=== PATIENT | male | born 1950 | race Caucasian/White ===

== ENCOUNTER → 2017-05-13 | Day surgery (SDC) | payer OTHER, MEDICARE ==
[~2017-05-13] VITALS: Ht 175.3 cm; Wt 93.5 kg
[~2017-05-13] MED LIST: ACET-1256 PO; AMLH550 PO; ATROPINE SULFATE 0.1 MG/ML 5ML SYR IV PRN; BELLADONNA/OPIUM SUPP 60 MG SUPP PR ONE; CEFAZOLIN IV 2,000 MG/60 ML D5W IV ONE; CHOL1000 PO; EpHEDrine SULFATE INJ 50 MG/ML AMP IV PRN; FENTANYL CITRATE INJ 50 MCG/1 ML 2 ML VIAL IV PRN; FENTANYL CITRATE INJ 50 MCG/1 ML 2 ML VIAL ONE; GLC/500 PO; GUAI1TAB55 PO; HYDR12.55 PO; KRIL1000 PO; LACTATED RINGER'S 1000ML 1,000 ML IV SCH; LIDOCAINE HCL 2% 2 ML VIAL (20MG/ML) ONE; MIDAZOLAM HCL 1 MG/ML 2ML VIAL ONE; MULTTAB58 PO; ONDANSETRON INJ 2 MG/ML 2 ML VIAL IV PRN; OXYC-57 PO; PERCOCET HOME PACK PO ONE; PHEN-775 PO; PHENAZOPYRIDINE HOME PACK 200 MG VIAL PO ONE; PRLSR20 PO; PROPOFOL IV EMULSION 10 MG/ML 20 ML VIAL IV ONE
[2017-05-13 17:37] VITALS: BP 150/71; PULSE 77; TEMP 36.8; O2SAT 96; Ht 175.3 cm; Wt 93.5 kg
--- NOTE | 2017-05-13 19:01 | History and Physical ---
History Date of Service: May 13, 2017. Chief Complaint: left ureteral stone with obstruction Primary Care Physician: Jordon Naqvi MD Pt seen a urologist before?: No History of Present Illness Patient has large left ureteral stone with obstruction severe pain nausea and emesis. we plan stent Imaging CT Laboratory Labs were reviewed and are within normal limits unless listed below. Labs are available in the chart and at [facility] Past History Past Medical History: coronary artery disease, diabetes, heart disease, hypertension Family History no stones Social History Hx Tobacco Use In Past Year?: No Smoking: non-smoker Alcohol: never Housing status: lives with family Occupation status: retired History of MDRO No Allergies Coded Allergies: Morphine (Verified Allergy, Mild, ITCHING, 05/13/17) Medications Home Medications: Home Meds and Scripts Medications Dose Route/Sig Max Daily Dose Days Date Category Krill Oil 1 Cap Cap 1 Cap PO DAILY 05/13/17 Reported Hydrochlorothiazide 12.5 Mg Tab 1 Tab PO DAILY 90 05/13/17 Reported Glucophage (Metformin Hcl) 500 Mg Tab 500 Mg PO BID 05/13/17 Reported Prilosec (Omeprazole) 20 Mg Capcr 20 Mg PO DAILY 05/13/17 Reported Vitamin D3 (Cholecalciferol) 1,000 Unit Tab 500 Units PO DAILY 30 05/13/17 Reported Multivitamin (Multiple Vitamin) 1 Tab Tab 1 Tab PO DAILY 90 05/13/17 Reported Tylenol (Acetaminophen) 500 Mg Tab 1,000 Mg PO Q6 PRN 05/13/17 Reported Moduretic 5MG/50MG * (Amiloride/HCTZ) Tab 1 Tab PO DAILY 02/08/08 Reported Inpatient Medications: Current Inpatient Medications Medications (Trade) Dose Ordered Sig/Twin Route Start Time Stop Time Status Last Admin Dose Admin Lactated Ringer's 1,000 ml @ 15 mls/hr Q24H IV 05/13/17 07:00 05/14/17 06:59 05/13/17 17:59 15 MLS/HR Fentanyl Citrate (Fentanyl Inj) 25 mcg Q5M PRN IV 05/13/17 16:15 05/13/17 21:15 Ondansetron HCl (Zofran Inj) 4 mg ONE PRN IV 05/13/17 16:15 05/13/17 21:15 Ephedrine Sulfate (EpHEDrine SULFATE INJ) 5 mg Q5M PRN IV 05/13/17 16:15 05/13/17 21:15 Atropine Sulfate (Atropine Sulfate 0.1MG/Ml Inj) 0.5 mg Q1M PRN IV 05/13/17 16:15 05/13/17 21:15 Review of Systems Review of Systems Constitutional: No fever, No chills Endocrine: No excessive thirst, No too hot Gastrointestinal: + abdominal pain, + nausea, + vomiting, + constipation, No indigestion Cardiovascular: No chest pain, No irregular heartbeat, No palpitations Male : + frequent urination, + painful urination, + blood in urine, + kidney stones, + nocturia more than once/night Physical Exam Vital Signs: Vital Signs Past 12 Hours Date Time Temp Pulse Resp B/P (MAP) Pulse Ox O2 Delivery O2 Flow Rate FiO2 05/13/17 17:37 36.8 77 18 150/71 (97) 96 Room Air Physical Exam: General Appearance: WD/WN, no apparent distress, + obese Eyes: bilateral eyes normal inspection ENT: hearing grossly normal Neck: no adenopathy Respiratory/Chest: normal breath sounds, no respiratory distress, no accessory muscle use Cardiovascular: regular rate, rhythm Extremities: non-tender, normal inspection, no pedal edema Neurologic/Psychiatric: alert Skin: normal color, warm/dry, no rash Assessment & Plan Assessment & Plan left obstructing ureteral stone with hydro and left lower pole stone plan cysto stent then next week a ureteroscopy with laser litho
--- NOTE | 2017-05-13 19:30 | [facility] Operative Report ---
Operative Report Operative Date May 13, 2017. Pre-Operative Diagnosis obstructing left ureteral stone Post-Operative Diagnosis same Procedure(s) Performed cysto left stent placement Surgeon omaira Bail Bonding Agent Surgeon(s) none Estimated Blood Loss 0mL Findings large radio-opaque left upper ureteral stone Fluids 600mL Specimens none Drains 6 fr 24 centimeter double j stent Anesthesia iv sedation Complication(s) None Disposition Recovery Room / PACU Indications large obstructing left upper ureteral stone we plan stent to relieve pain and obstruction then plan surgery to remove it and the left renal stone next week Description of Procedure Patient was sedated and placed in lithotomy position. His genitals were prepped and draped in sterile fashion. Time out held with team. I placed a 21 fr rigid cystoscope to bladder. The urethra is unremarkable. The prostate is very large with middle lobe. The UOs are lateral. I placed a road runner wire up left ureter and there is a bit of j hooking. I had minimal resistance to passage of wire at radio-opaque stone. I placed a 24 centimeter 6 Fr double J stent easily. There is brisk bloody efflux after placement. I left bladder empty and concluded case. I placed a belladonna and opium suppository for post- op pain. He transferred to recovery under my escort, in stable condition. Plan: Home today Pyridium for dysuria x 3 days flomax daily oral pain meds as needed ASA 2 clean contaminated case 4 seconds fluoro ancef antibiotic front desk supervisor I attest to the content of the Intraoperative Record and any orders documented therein. Any exceptions are noted below.
--- NOTE | 2017-05-13 19:31 | Anesthesiology Progress Note ---
Anesthesia Post Op Note Date & Time May 13, 2017 at 19:31 Vital Signs Pain Intensity: 1 Vital Signs Past 12 Hours Date Time Temp Pulse Resp B/P (MAP) Pulse Ox O2 Delivery O2 Flow Rate FiO2 05/13/17 17:37 36.8 77 18 150/71 (97) 96 Room Air Notes Mental Status: alert / awake / arousable, participated in evaluation Pt Amnestic to Procedure: Yes Nausea / Vomiting: adequately controlled Pain: adequately controlled Airway Patency, RR, SpO2: stable & adequate BP & HR: stable & adequate Hydration State: stable & adequate Anesthetic Complications: no major complications apparent
--- NOTE | 2017-05-13 19:33 | Discharge Instructions ---
Discharge Instructions Date of Service May 13, 2017. Admission Reason for Admission: Kidney Stone Discharge Discharge Diagnosis / Problem: left ureteral stone Discharge Goals Goal(s): Decrease discomfort, Improve function, Improve disease control Activity Recommendations Activity Limitations: resume your previous activity Lifting Limitations: none Exercise/Sports Limitations: none May Resume Sexual Activity: when tolerated Shower/Bathe: no limitations Driving or Machine Use: resume 1 day after discharge . Instructions / Follow-Up Instructions / Follow-Up urine may be bloody drink extra liquids if urine is bloody you may have pain at bladder and or kidney with stent in Discharge Diet Recommended Diet: Diabetes Type 2 Diet Fluid Restriction: None Procedures Procedures Performed: cysto left ureteral stent placement Pending Studies Studies pending at discharge: no Medical Emergencies . Who to Call and When: Medical Emergencies: If at any time you feel your situation is an emergency, please call 911 immediately. . Non-Emergent Contact Non-Emergency issues call your: Urologist ([phone]) Call Non-Emergent contact if: temperature is above 100.5, your pain is not controlled . . "Provider Documentation" section prepared by Michelle Trinh. . VTE Core Measure Inpt VTE Proph given/why not?: SCD's [place] Drug Monitoring Program Search Results: patient reviewed within database, no issues identified
[2017-05-13 19:49] VITALS: BP 128/73; PULSE 69; TEMP 36.1; O2SAT 97
--- NOTE | 2017-05-13 20:17 | DIAGNOSTIC IMAGING REPORT ---
FLUOROSCOPIC IMAGES FROM LEFT RETROGRADE EXAM CLINICAL HISTORY: LEFT STENT PLACEMENT COMPARISON STUDY: CT of the abdomen and pelvis January 02, 2012. Fluoroscopy time: 4.1 seconds. FINDINGS: Single fluoroscopic image demonstrates cannulation of the left ureter with wire and stent. A possible density projects over the proximal left ureter and could reflect a calculus. This is suboptimally assessed on this exam. IMPRESSION: Single fluoroscopic image from left retrograde exam with stent insertion. Electronically signed by: Philip Levy M.D. 05/13/2017 8:16 PM Dictated Date/Time: 05/13/2017 8:15 PM
[2017-05-13 20:20] VITALS: BP 123/69; PULSE 68; TEMP 36.5; O2SAT 98
== END | disposition home or self-care (01) ==
LOC: C.ACU 17:06
PROVIDERS: ATTEND Urology
DX: N20.1 Calculus of ureter (principal); E11.9 Type 2 diabetes mellitus without complications; I25.10 Atherosclerotic heart disease of native coronary artery without angina pectoris; I10 Essential (primary) hypertension; J45.909 Unspecified asthma, uncomplicated; Z96.649 Presence of unspecified artificial hip joint; Z98.890 Other specified postprocedural states; Z88.5 Allergy status to narcotic agent; Z91.018 Allergy to other foods

== ENCOUNTER 2018-07-03 23:01 | Emergency (ER) | payer OTHER, MEDICARE ==
[~2018-07-03] VITALS: Ht 170.2 cm; Wt 92.2 kg
[~2018-07-03 23:01] MED LIST changes: -ATROPINE SULFATE 0.1 MG/ML 5ML SYR IV PRN; -BELLADONNA/OPIUM SUPP 60 MG SUPP PR ONE; -CEFAZOLIN IV 2,000 MG/60 ML D5W IV ONE; -EpHEDrine SULFATE INJ 50 MG/ML AMP IV PRN; -FENTANYL CITRATE INJ 50 MCG/1 ML 2 ML VIAL IV PRN; -FENTANYL CITRATE INJ 50 MCG/1 ML 2 ML VIAL ONE; -GUAI1TAB55 PO; -LACTATED RINGER'S 1000ML 1,000 ML IV SCH; -LIDOCAINE HCL 2% 2 ML VIAL (20MG/ML) ONE; -MIDAZOLAM HCL 1 MG/ML 2ML VIAL ONE; -ONDANSETRON INJ 2 MG/ML 2 ML VIAL IV PRN; -OXYC-57 PO; -PERCOCET HOME PACK PO ONE; -PHEN-775 PO; -PHENAZOPYRIDINE HOME PACK 200 MG VIAL PO ONE; -PROPOFOL IV EMULSION 10 MG/ML 20 ML VIAL IV ONE
[2018-07-03 23:04] VITALS: TEMP 36.4; Ht 170.2 cm; Wt 92.2 kg
[2018-07-03] MEDS ORDERED: OXYCODONE HCL IR 5 MG TAB (IMMEDIATE RELEASE) PO STA (23:29)
[2018-07-03] MEDS ORDERED: OXYMETAZOLINE HCL 0.05% NA SPR 15 ML BTL ONE (23:30)
[2018-07-03] MEDS ORDERED: AMOXICILLIN/CLAVULANATE TAB 875 MG TAB PO ONE (23:30)
--- NOTE | 2018-07-03 23:31 | EMERGENCY ROOM VISIT NOTE ---
History Report prepared by Khalif: James Garcia Under the Supervision of: Dr. Jigar Britton M.D. First contact with patient: 23:15 Chief Complaint: HEADACHE Stated Complaint: SINUS HEADACHE History of Present Illness The patient is a 68 year old male who presents to the Emergency Room with complaints of a sinus infection. He notes the pain is in the right side of his face/cheek. He states he has a history of sinus infections in the past (x20 years ago) and had corrective surgery for this. He states he has had the sinus infection the past x2 weeks. He notes nasal discharge and occasional eye discharge, but denies a fever, chills, headache, neck pain, palpitations, or any other complaints. The patient does note use of Pseudafed PE, but denies any other antibiotic use. The patient denies being exposed to anybody ill. Review of Systems See HPI for pertinent positives & negatives. A total of 10 systems reviewed and were otherwise negative. Constitutional: No fever, No chills ENT: + nasal symptoms, No sore throat Respiratory: No cough, No shortness of breath Cardiovascular: No chest pain Abdomen: + pain, No nausea, No vomiting Family History Father had melanoma Social History Smoking Status: Never Smoker Occupation Status: retired Current/Historical Medications Scheduled Amiloride Hcl (Amiloride Hcl), 5 MG PO DAILY Amoxicillin & Pot Clavulanate (Augmentin 875-125 mg), 875 MG PO BID B-Complex Vitamins (Vitamin B Complex), 1 TAB PO DAILY Cholecalciferol (Vitamin D3), 1 CAP PO DAILY Hydrochlorothiazide (Hydrochlorothiazide), 12.5 MG PO DAILY Metformin Hcl (Glucophage), 500 MG PO BID Multiple Vitamin (Multivitamin), 1 TAB PO DAILY Omeprazole (Prilosec), 20 MG PO DAILY Prednisone (Prednisone), 50 MG PO DAILY Scheduled PRN Oxycodone Immediate Rel Tab (Roxicodone Ir), 1-2 TAB PO Q4H PRN for Severe Pain Allergies Coded Allergies: Morphine (Verified Allergy, Mild, ITCHING, 07/04/18) Physical Exam Vital Signs Date Time Temp Pulse Resp B/P (MAP) Pulse Ox O2 Delivery O2 Flow Rate FiO2 07/04/18 00:50 80 20 114/72 98 07/03/18 23:04 36.4 57 18 153/73 96 Room Air Physical Exam GENERAL: Patient is well appearing and in no acute distress. GENERAL: Uncomfortable appearing, appears in mild distress EYES: No scleral icterus, unremarkable pupils. ENT: Right max and ethmoid sinus TTP. Inflammation and erythema right nasal turbinates, effusion right middle ear, Mucous membranes moist, no nasal congestion. NECK: No masses appreciated, no meningismus, trachea is midline. RESPIRATORY: No dyspnea. Clear to auscultation and equal bilaterally. No wheeze , no rhonchi. CARDIOVASCULAR: Regular rate and rhythm. No murmurs, rubs, gallops appreciated. GASTROINTESTINAL: Abdomen soft, no peritonitis. Mild tenderness with palpation LLQ. Bowel sounds positive. No masses appreciated. BACK: No midline tenderness, no CVA tenderness EXTREMITIES: Normal motion all extremities, no cyanosis, no edema. NEUROLOGIC: Alert and oriented, no acute motor or sensory deficits, no focal weakness, cranial nerves grossly intact. SKIN: Irregular dark discoloration of tip of nose. No rash, no jaundice, no diaphoresis. Medical Decision & Procedures Medications Administered Medications (Trade) Dose Ordered Sig/Twin Route Start Time Stop Time Status Last Admin Dose Admin Oxymetazoline HCl (Afrin 0.05% Nasal [employer]) 2 sprays NOW ONCE NA 07/03/18 23:30 07/03/18 23:31 DC 07/03/18 23:37 2 SPRAYS Prednisone (PredniSONE TAB) 60 mg NOW STAT PO 07/03/18 23:29 07/03/18 23:31 DC 07/03/18 23:37 60 MG Oxycodone HCl (Roxicodone Immediate Rel Tab) 10 mg NOW STAT PO 07/03/18 23:29 07/03/18 23:31 DC 07/03/18 23:37 10 MG Amoxicillin/ Clavulanate Potassium (Augmentin Tab) 875 mg ONE ONCE PO 07/03/18 23:30 07/03/18 23:31 DC 07/03/18 23:37 875 MG Oxycodone HCl (Roxicodone Immediate Rel 5MG Home Pack) 1 homepack UD ONCE PO 07/04/18 00:45 07/04/18 00:46 DC 07/04/18 00:45 1 HOMEPACK Medical Decision Mr. Nassar is a pleasant 68 year old male who reports for sinus pain/infection symptoms x2 weeks. He has a prior history of this x20 years ago, which resolved with corrective surgery. His exam notes inflammation and erythema right nasal turbinates, effusion right middle ear. Orders: 23:30: Prednisone 60mg, Oxycodone 10mg PO, Amoxicillin 875mg PO, Oxymetazoline 0.05% 2 sprays Rechecks: 1209AM: Patient is feeling much better. He would like to wait a little long before being discharged home. 12:43AM: Patient is doing well and wishes to be discharged home. He will follow up with his PCP in 2-3 days. Reviewed plan with the patient who agrees. All questions answered. Right sinus infection by history and exam. Not septic and looking well. He is much improved with above meds and comfortable. Vague LLQ pain last few days but not septic and no evidence of dissection, rupture, nor peritonitis. States not like kidney stones. May be mild diverticulitis but more likely MSK. Regardless he will need to be on abx for sinus and will go with augmentin. Reviewed risks hyperglycemia with steroids. Reviewed risks, restrictions and instructions of Oxy IR. Reviewed 48 hours afrin use. Patient stable, feeling much better and wanting to go home. Will follow with PCP. Discussed skin discoloration of tip of nose with is dark, multiple colors, irregular boarders and enlarged over last 1 year, in addition to his father having melanoma thus the importance of discussing with PCP and likely Derm evaluation. He understands and agrees. Medication Reconcilliation Current Medication List: was personally reviewed by me Blood Pressure Screening Patient's blood pressure: Elevated blood pressure Impression Primary Impression: Acute sinus infection Additional Impression: Skin lesion Scribe Attestation The scribe's documentation has been prepared under my direction and personally reviewed by me in its entirety. I confirm that the note above accurately reflects all work, treatment, procedures, and medical decision making performed by me. Departure Information Prescriptions Oxycodone Immediate Rel Tab (ROXICODONE IR) 5 Mg Tab 1-2 TAB PO Q4H Y for Severe Pain, #8 TAB Prov: Jigar Britton M.D. 07/04/18 Amoxicillin & Pot Clavulanate (Augmentin 875-125 mg) 1 Tab Tab 875 MG PO BID for 10 Days, #20 TAB Prov: Jigar Britton M.D. 07/04/18 Prednisone (PREDNISONE) 50 Mg Tab 50 MG PO DAILY for 4 Days, #44 TAB Prov: Jigar Britton M.D. 07/04/18 Referrals Jordon Naqvi MD (PCP) Patient Instructions ED Sinusitis Abx Tx, My [facility] Additional Instructions It is very important you follow up with your primary care provider for further evaluation of your sinus infection as well as the discoloration of your nose. You have received a narcotic pain medication prescription. These medications may cause drowsiness and should not be used with other sedative medications. Do not drive, drink alcohol, perform dangerous activities, nor make important decisions after taking these medications. termite technician use or inappropriate use may lead to addiction. Prednisone may make your blood sugars higher over the next week thus you must monitor them closely and avoid sugars. Problem Qualifiers
[2018-07-04] MEDS ORDERED: CHOL2000 PO (00:08)
[2018-07-04] MEDS ORDERED: B-COTAB18 PO (00:08)
[2018-07-04] MEDS ORDERED: AMIL5TAB15 PO (00:08)
[2018-07-04] MEDS ORDERED: OXYC-737 PO (00:41)
[2018-07-04] MEDS ORDERED: AMOX875T PO (00:41)
[2018-07-04] MEDS ORDERED: PRED50TA PO (00:41)
[2018-07-04] MEDS ORDERED: OXYCODONE IR HOME PACK PO ONE (00:45)
[2018-07-04 00:50] VITALS: BP 114/72; PULSE 80; O2SAT 98
== END 2018-07-04 00:52 | disposition home or self-care (01) ==
LOC: C.EDB 23:02
DX: J01.90 Acute sinusitis, unspecified (principal); L98.9 Disorder of the skin and subcutaneous tissue, unspecified; Z87.09 Personal history of other diseases of the respiratory system; Z98.890 Other specified postprocedural states; Z80.8 Family history of malignant neoplasm of other organs or systems; Z88.6 Allergy status to analgesic agent

== ENCOUNTER 2022-02-02 22:21 | Inpatient (IN) ==
[2022-02-02] MEDS ORDERED: SODIUM CHLORIDE 0.9% 500 ML IV STA (22:52)
[2022-02-02] MEDS ORDERED: fentaNYL citrate 100 MCG/2 ML VIAL IV STA (23:03)
[2022-02-02] MEDS ORDERED: KETOROLAC TROMETHAMINE 15 MG/ML VIAL IV STA (23:03)
[2022-02-02] MEDS ORDERED: ONDANSETRON INJ 2 MG/ML 2 ML VIAL IV STA (23:03)
[2022-02-02 23:06] LABS: Appearance Urine Cloudy (Clear); Bacteria Urine Automated 2+ (Negative); Bilirubin Urine Negative (Negative); Blood Urine 3+ (Negative); Color Urine Yellow; Epithelial Cell Urine Auto 0-5 /lpf (0-5); Glucose Urine UA Negative (Negative); Ketones Urine 1+ (Negative); Leukocyte Esterase Urine 3+ (Negative); Nitrite Urine Positive (Negative); Protein Urine 1+ (Negative); Specific Gravity Urine 1.017 (1.000-1.030); Urobilinogen Urine Negative (Negative); WBC Urine Automated >30 /hpf (0-5)
--- NOTE | 2022-02-02 23:19 | Emergency Department Note ---
History of Present Illness General Chief complaint: Kidney Stone Stated complaint: KIDNEY STONE, LT SIDE FLANK PAIN Time Seen by Provider: 02/02/22 22:51 History of Present Illness Maximum Pain Intensity: 10 71-year-old male presents emergency department with a 5-hour history of left flank pain that radiates to his left groin. He has a prior history of kidney stones; patient states that he felt like he passed a kidney stone last week. Patient states increased pain and vomiting today. Patient denies fever. Patient denies specific midline abdominal pain. There are no other mitigating or alleviating factors; currently rates the pain as moderate located in the left flank with radiation to left groin. There are no other mitigating or alleviating factors related to pain relief. Home Medications Medication Instructions Recorded Confirmed Type cinnamon bark 500 mg capsule 500 mg PO QAM 05/21/19 02/02/22 History (Cinnamon) metformin 1,000 mg tablet 1,000 mg PO BID 05/21/19 02/02/22 History multivitamin 1 tab PO QAM 05/21/19 02/02/22 History cyanocobalamin (vitamin B-12) 1,000 mcg PO Q OTHER DAY 02/02/22 02/02/22 History 1,000 mcg tablet (Vitamin B-12) elderberry fruit 200 mg capsule 200 mg PO UD 02/02/22 02/02/22 History losartan 25 mg tablet 25 mg PO DAILY 02/02/22 02/02/22 History omeprazole 20 mg tablet,delayed 20 mg PO BID 02/02/22 02/02/22 History release rosuvastatin 20 mg tablet 20 mg PO DAILY 02/02/22 02/02/22 History Allergies Allergy/AdvReac Type Severity Reaction Status Date / Time morphine Allergy Mild ITCHING Verified 02/02/22 22:47 banana Allergy Unknown Unverified 02/02/22 22:47 cabbage Allergy Unknown Unverified 02/02/22 22:47 cucumber Allergy Unknown Unverified 02/02/22 22:47 walnut Allergy Unknown Unverified 02/02/22 22:47 Past Med/Surg History Medical History (Updated 02/03/22 @ 00:53 by Sin Delgado DO) Asthma Diabetes Family History Other Family history non-contributory Social History Smoking Status: Never smoker Preferred Language: Croatian marital status: Current Living Situation: Spouse current occupational status: retired Feels Safe at Home: Yes Immunizations: Patient's had a prior history of kidney stones, patient's had stents in the past. Patient's not on any blood thinners. Review of Systems A total of 10 systems reviewed and were otherwise negative Gastrointestinal: + abdominal pain Genitourinary (Male): + flank pain Physical Exam Vital Signs Vital Signs - 24 hr 02/02/22 22:22 02/03/22 00:05 Temperature 36.4 C L Temperature Source Temporal Artery Scan Pulse Rate 73 67 Respiratory Rate 18 Respiratory Depth Normal Blood Pressure 180/124 H Blood Pressure Mean 142 Blood Pressure Position Sitting Pulse Oximetry 95 98 Oxygen Delivery Method Room Air Room Air Sepsis Recent Fever Within 48 Hours No Sepsis New/Unexplained Change in Mental Status No Sepsis Action Taken by Nursing No Action Required VITAL SIGNS - Vital signs and nursing notes were reviewed. GENERAL -71-year-old male appearing his stated age who is in no acute distress. Communicates well with provider and answers questions appropriately. SKIN - Without rashes. HEAD - NC/AT. EYES - PERRL with EOMI bilaterally. Sclera anicteric. Palpebral conjunctiva pink and moist with no injection noted. EARS - No deformities of external structures noted on gross examination bilaterally. NOSE - Midline and without cyanosis. No epistaxis or purulent drainage noted. Septum midline without deviation or septal hematoma noted. MOUTH/OROPHARYNX - Without perioral cyanosis. NECK - Neck with FROM. Supple to palpation. LUNGS - Chest wall symmetric without accessory muscle use, intercostals retractions, or central cyanosis. Normal vesicular breath sounds CTA B/L. No wheezes, rales, or rhonchi appreciated. CARDIAC - RRR with S1/S2. No murmur, rubs, or gallops appreciated. ABDOMEN - Abdominal contour soft without pulsations or visible masses. BS normoactive all four quadrants. No tenderness, palpable masses, hepatosplen omegaly, or ascites noted. Positive for left costovertebral angle tenderness EXTREMITIES - No clubbing or peripheral cyanosis. +5/5 strength noted in UE/LE bilaterally. NEUROLOGIC - Cranial nerves II through XII grossly intact. Sensory intact to light touch throughout. Patellar reflexes +2/4. PSYCH - A&Ox3 and cooperates fully with examiner. Pt is very pleasant and interacts well with examiner. Course Reevaluation(s) Reevaluation #1: Patient was started on IV fluids IV Zofran IV Toradol IV fentanyl, IV Rocephin. Patient has a 9.3 mm ureterolithiasis its proximal on the left side with a urin luis tract infection. Consultations Consultation #1: Dr Ross urology; keep NPO for am eval; spoke with at 1245am Consultation #2: Spoke with Dr Teresa for admit at 1252am Administered Medications Ceftriaxone Sodium (Rocephin) 1,000 mg in 50 mls @ 100 mls/hr IV NOW STA Stop: 02/03/22 01:05 Last Admin: 02/03/22 00:41 Dose: 100 mls/hr Documented by: [id number] Discontinued Medications Fentanyl Citrate (Fentanyl Citrate 100 Mcg/2 Ml Vial) 50 mcg IV NOW STA Stop: 02/02/22 23:04 Last Admin: 02/02/22 23:38 Dose: 50 mcg Documented by: [id number] Sodium Chloride (Nss) 500 mls @ 999 mls/hr IV .Q31M STA Stop: 02/02/22 23:22 Last Infusion: 02/03/22 00:11 Dose: 0 mls/hr Documented by: [id number] Admin: 02/02/22 23:37 Dose: 999 mls/hr Documented by: [id number] Ketorolac Tromethamine (Ketorolac Tromethamine 15 Mg/Ml Vial) 15 mg IV NOW STA Stop: 02/02/22 23:04 Last Admin: 02/02/22 23:37 Dose: 15 mg Documented by: [id number] Ondansetron HCl (Ondansetron Inj 2 Mg/Ml 2 Ml Vial) 4 mg IV NOW STA Stop: 02/02/22 23:04 Last Admin: 02/02/22 23:37 Dose: 4 mg Documented by: [id number] Tamsulosin HCl (Tamsulosin Hcl 0.4 Mg Cap) 0.4 mg PO NOW ONE Stop: 02/03/22 00:38 Last Admin: 02/03/22 00:44 Dose: 0.4 mg Documented by: [id number] Medical Decision Making Medical Records Attestation: I reviewed the patient's medical records. Laboratory Data Attestation: I reviewed the patient's lab results. Result diagrams: 02/02/22 23:23 02/02/22 23:23 Lab Results 02/02/22 02/02/22 02/02/22 Range/Units 22:52 23:23 23:23 WBC 8.33 (4.8-10.8) K/uL RBC 4.71 (4.7-6.1) M/uL Hgb 14.0 (14.0-18.0) g/dL Hct 40.9 L (42-52) % MCV 86.8 (80-100) fL MCH 29.7 (25-34) pg MCHC 34.2 (32-36) g/dL RDW Std Deviation 47.2 H (36.4-46.3) fL RDW Coeff of Surinder 14.7 H (11.5-14.5) % Plt Count 171 (130-400) K/uL MPV 10.4 (7.4-10.4) fL Immature Gran % (Auto) 0.2 % Neut % (Auto) 79.5 % Lymph % (Auto) 11.8 % [place] % (Auto) 8.3 % Eos % (Auto) 0.0 % Baso % (Auto) 0.2 % Neut # (Auto) 6.62 H (1.4-6.5) K/uL Lymph # (Auto) 0.98 L (1.2-3.4) K/uL [place] # (Auto) 0.69 H (0.11-0.59) K/uL Eos # (Auto) 0.00 (0-0.5) K/uL Baso # (Auto) 0.02 (0-0.2) K/uL Immature Gran # (Auto) 0.02 (0.00-0.02) K/uL Sodium 135 L (136-145) mmol/L Potassium 4.1 (3.5-5.1) mmol/L Chloride 100 (98-107) mmol/L Carbon Dioxide 26 (21-32) mmol/L Anion Gap 9 (3-11) BUN 22 (6-23) mg/dl Creatinine 0.86 (0.6-1.4) mg/dl Est Cr Clr Drug Dosing 86.9 ml/min Est GFR ( Amer) 100.4 ml/min Est GFR (Non-Af Amer) 86.6 ml/min BUN/Creatinine Ratio 25.6 H (10-20) Glucose 184 H (70-99(Fasting)) mg/dl Calcium 9.7 (8.5-10.1) mg/dl Total Bilirubin 0.9 (0.2-1.0) mg/dl AST 25 (13-39) U/L ALT 20 (7-52) U/L Alkaline Phosphatase 66 (34-104) U/L Total Protein 7.5 (6.0-8.3) gm/dl Albumin 4.4 (3.4-5.0) gm/dl Globulin 3.1 (2.5-4.0) gm/dl Albumin/Globulin Ratio 1.4 (0.9-2) Urine Color Yellow Urine Appearance Cloudy A (Clear) Urine pH 5.0 (4.5-7.5) Ur Specific [place] 1.017 (1.000-1.030) Urine Protein 1+ H (Negative) Urine Glucose (UA) Negative (Negative) Urine Ketones 1+ H (Negative) Urine Blood 3+ H (Negative) Urine Nitrite Positive A (Negative) Urine Bilirubin Negative (Negative) Urine Urobilinogen Negative (Negative) Ur Leukocyte Esterase 3+ H (Negative) Urine WBC (Auto) >30 H (0-5) /hpf Urine RBC (Auto) 10-30 H (0-4) /hpf U Hyaline Cast (Auto) 1-5 (0-5) /lpf U Epithel Cells (Auto) 0-5 (0-5) /lpf Urine Bacteria (Auto) 2+ H (Negative) Imaging Data Radiologist's Impression: * Preliminary Findings Only See Final Report For Complete Findings CT ABDOMEN & PELVIS Without Contrast: Comparison: CT abdomen and pelvis 01/02/12. Obstructing 9.3 mm proximal left ureter stone located at the L2-L3 level causing mild upstream hydroureteronephrosis. Additional punctate nonobstructing left kidney stones. Multiple nonobstructing right kidney stones. No right-sided hydroureteronephrosis. Slight liver surface nodularity could reflect cirrhosis. Gallbladder, spleen, pancreas, adrenal glands are unremarkable. Appendix not identified. No bowel obstruction. Diverticulosis without diverticulitis. Urinary bladder is unremarkable. Prostate is enlarged. Fat-containing inguinal hernias. Fixation hardware along the posterior column of the left acetabulum. No acute osseous findings. Radiologist: Dominique Gunter M.D.12:31 AM10 days left MDM Narrative Medical decision making differential diagnosis includes ureterolithiasis, renal colic, musculoskeletal back pain, I do not suspect AAA. Plan is to check labs, CT, IV pain control Impression & Plan Ureterolithiasis, Acute UTI (urinary tract infection) Discharge Plan Visit Data Chief Complaint: Kidney Stone Stated Complaint: KIDNEY STONE, LT SIDE FLANK PAIN ED Provider: Sin Delgado Discharge Problem: Ureterolithiasis, Acute UTI (urinary tract infection) Patient Disposition: Being Evaluated by Hospitalist Forms Stand Alone Forms: [facility] Prescriptions Prescriptions: No Action multivitamin Tablet 1 tab PO QAM RF: 0 metformin 1,000 mg tablet 1,000 mg PO BID RF: 0 cinnamon bark [Cinnamon] 500 mg Capsule 500 mg PO QAM RF: 0 losartan 25 mg tablet 25 mg PO DAILY RF: 0 omeprazole 20 mg Tablet,Delayed Release (Dr/Ec) 20 mg PO BID RF: 0 cyanocobalamin (vitamin B-12) [Vitamin B-12] 1,000 mcg Tablet 1,000 mcg PO Q OTHER DAY RF: 0 Elderberry 200 mg Capsule 200 mg PO UD RF: 0 rosuvastatin 20 mg Tablet 20 mg PO DAILY RF: 0 Referrals Referrals: Jordon Naqvi MD [Primary Care Provider] -
[2022-02-02 23:42] LABS: Basophils # (auto) 0.02 K/uL (0-0.2); Basophils % (auto) 0.2 %; Hematocrit (blood only) 40.9 % (42-52); Immature Granulocytes # (auto) 0.02 K/uL (0.00-0.02); Immature Granulocytes % (auto) 0.2 %; Lymphocytes # (auto) 0.98 K/uL (1.2-3.4); Lymphocytes % (auto) 11.8 %; Mean Corpuscular Hemoglobin 29.7 pg (25-34); Mean Corpuscular Hgb Conc 34.2 g/dL (32-36); Mean Corpuscular Volume 86.8 fL (80-100); Mean Platelet Volume 10.4 fL (7.4-10.4); Monocytes # (auto) 0.69 K/uL (0.11-0.59); Monocytes % (auto) 8.3 %; Neutrophils # (auto) 6.62 K/uL (1.4-6.5); Neutrophils % (auto) 79.5 %; Platelet Count 171 K/uL (130-400); RDW Coefficient of Variation 14.7 % (11.5-14.5); RDW Standard Deviation 47.2 fL (36.4-46.3); Red Blood Count 4.71 M/uL (4.7-6.1); White Blood Count 8.33 K/uL (4.8-10.8)
[2022-02-03 00:02] LABS: Albumin Globulin Ratio 1.4 (0.9-2); Albumin Level 4.4 gm/dl (3.4-5.0); BUN Creatinine Ratio 25.6 (10-20); Bilirubin,Total 0.9 mg/dl (0.2-1.0); Calcium 9.7 mg/dl (8.5-10.1); Creatinine Clr Calc Pharmacy 86.9 ml/min; Est GFR (African American) 100.4 ml/min; Est GFR (Non-African American) 86.6 ml/min; Globulin 3.1 gm/dl (2.5-4.0); Potassium 4.1 mmol/L (3.5-5.1); Total Protein 7.5 gm/dl (6.0-8.3)
[2022-02-03] MEDS ORDERED: cefTRIAXone SODIUM 1,000 MG/50 ML BAG IV STA (00:36)
[2022-02-03] MEDS ORDERED: TAMSULOSIN HCL 0.4 MG CAP PO ONE (00:37)
--- NOTE | 2022-02-03 02:22 | History and Physical Report ---
DATE OF ADMISSION: 02/03/2022. CHIEF COMPLAINT: Left flank pain. HISTORY OF PRESENT ILLNESS: A 71-year-old male with past medical history significant for type 2 diabetes, primary hyperparathyroidism, diabetic neuropathy, hyperlipidemia, asthma, in remission, portal hypertension, TERAN, GERD without esophagitis, history of gastric ulcer, history of kidney stones, history of melanoma of skin, who presents with left flank pain. The patient says he had history of kidney stones in the past. At one time, he had stent that was placed about 4 years ago. Yesterday in the evening around 6:00 p.m., he started having severe pain in the left flank region. Associated with pain, he had several episodes of dry heaves and 1 episode of vomiting in the ER. He is also having likely increased frequency of urination for the last 2 days. Denies any burning micturition, no blood in the urine. No fever, no chills, no diarrhea. He has been slightly constipated that got resolved. Denies any chest pain, no shortness of breath. Appetite is okay. No difficulty swallowing. He had some headache during the episode, that resolved now. Some runny nose today. No blurred visions, no earache, no sore throat. No cough. Currently resting comfortably and hemodynamically stable. ALLERGIES: MORPHINE, BANANA, CABBAGE, CUCUMBER, WALNUT. PAST MEDICAL HISTORY: As mentioned above. PAST SURGICAL HISTORY: Colonoscopies, cystourethroscopy with lithotripsy, EGD with endoscopic ultrasound, parathyroidectomy, hardware in left hip, right lower leg hardware, right tibia fracture repair, revision of ulnar nerve at right elbow, umbilical hernia repair. MEDICATIONS: The patient is on vitamin B12 1000 mcg p.o. every other day, losartan 25 mg p.o. daily, metformin 1000 mg p.o. b.i.d., multivitamin 1 tablet p.o. daily, omeprazole 20 mg p.o. b.i.d., lovastatin 20 mg p.o. daily. FAMILY HISTORY: Significant for brother has diabetes. Father has diabetes, sister has diabetes, son has ulcer disease, father has CHF and CABG and melanoma. SOCIAL HISTORY: . No smoking, no alcohol, no drug use. REVIEW OF SYSTEMS: As per HPI. Rest of review of systems is negative. PHYSICAL EXAMINATION: GENERAL: The patient is of moderate build, not in acute distress. VITAL SIGNS: Temperature 36.4, pulse 67, respiratory rate 18, blood pressure 125/73, oxygen 95% on room air. HEENT: Pupils equal, round and reactive to light. Oral mucosa moist. NECK: No JVD, no neck masses. CARDIOVASCULAR: S1 and S2 heard. Regular rate and rhythm. No murmur, no gallop. RESPIRATORY SYSTEM: Normal AP diameter. No accessory muscle use. No wheezing, no crackles. ABDOMEN: Soft, bowel sounds present. Mild left lower quadrant tenderness. No CVA tenderness. No guarding. No rigidity, no distention. CENTRAL NERVOUS SYSTEM: Cranial nerves II-XII grossly intact, nonfocal. EXTREMITIES: Bilateral mild edema present, no erythema seen. LABORATORY DATA: WBC 8.3, hemoglobin 14, hematocrit 40.9, platelets 171. Sodium 135, potassium 4.1, chloride 100, bicarbonate 26, BUN 22, creatinine 0.8, serum glucose 184, calcium 9.7, total bilirubin 0.9, AST 25, ALT 20, alkaline phosphatase 66. Urinalysis cloudy, +3 blood, nitrite positive, leukocyte esterase positive, +2 bacteria. Rapid COVID test negative. IMAGING DATA: CT of abdomen and pelvis preliminary report showing an obstructing 9.3 mm proximal left ureteral stone located at the L2-L3 level, causing mild upstream hydroureteronephrosis. Additional finding showed nonobstructing left kidney stones, multiple nonobstructing right kidney stones. No right sided hydronephrosis, possible liver cirrhosis. ASSESSMENT AND PLAN: This is a 71-year-old male presents with left renal colic. 1. Left renal colic and urinary tract infection: Received Rocephin in the ER and pain medication in the ER. Currently, asymptomatic. We will continue with n.p.o., IV fluids, normal saline 100 mL per hour, IV Dilaudid p.r.n., IV antiemetics. Continue IV Rocephin. Follow the cultures. ER physician talked to urology. Consult urology in the a.m. for further recommendations. Keep n.p.o. until seen by urology. 2. History of diabetes: We will hold his metformin. Place on insulin sliding scale. Follow blood sugars. 3. History of hypertension: Holding losartan.On HCTZ. Place on IV hydralazine p.r.n. We will monitor the blood pressure. 4. Hyperlipidemia: Continue statin. 5. Gastroesophageal reflux disease: Continue omeprazole. 6. History of non-alcoholic steatohepatitis, possible cirrhosis. Follow the final report of the CAT scan. Needs follow up with gastroenterology. 7. History of primary hyperparathyroidism: Status post parathyroidectomy. 8. Deep venous thrombosis prophylaxis: Sequential compression devices for now. DISPOSITION: Closely monitor in the medical floor. PT/OT prior to discharge. Social service to help with discharge planning. Job ID: [id number] [facility]ENTER[facility]loria
[2022-02-03] MEDS ORDERED: HYDROmorphone INJ 0.5 MG/0.5 ML SYR IV PRN (02:41)
[2022-02-03] MEDS ORDERED: POLYETHYLENE (MIRALAX) 17 GM PACK PO PRN (02:41)
[2022-02-03] MEDS ORDERED: ONDANSETRON INJ 2 MG/ML 2 ML VIAL IV PRN ×2 (02:41→16:14)
[2022-02-03] MEDS: SODIUM CHLORIDE 0.9% 1000ML 1,000 ML IV SCH ×2 (02:41→11:22)
[2022-02-03] MEDS ORDERED: ACETAMINOPHEN 325 MG TAB PO PRN (02:41)
[2022-02-03] MEDS ORDERED: hydrALAZINE HCL 20 MG/ML VIAL IV PRN (02:41)
[2022-02-03] MEDS ORDERED: GLUCOSE 10 TABS/TUBE PO PRN (03:00)
[2022-02-03] MEDS ORDERED: GLUCOSE 40% GEL 15 GM TUBE PO PRN (03:00)
[2022-02-03] MEDS ORDERED: CARBOHYDRATES FOR HYPOGLYCEMIA PO PRN (03:00)
[2022-02-03] MEDS ORDERED: DEXTROSE 50% 50 ML SYRINGE IV PRN (03:00)
[2022-02-03] MEDS ORDERED: GLUCAGON FOR INJ 1 MG VIAL IM PRN (03:00)
[2022-02-03] MEDS: INSULIN ASPART PER UNIT SC SCH ×4 (06:19→21:36)
[2022-02-03 07:21] LABS: Basophils # (auto) 0.01 K/uL (0-0.2); Basophils % (auto) 0.1 %; Hematocrit (blood only) 37.7 % (42-52); Hemoglobin 12.9 g/dL (14.0-18.0); Lymphocytes % (auto) 6.6 %; Mean Corpuscular Hemoglobin 29.5 pg (25-34); Mean Corpuscular Hgb Conc 34.2 g/dL (32-36); Mean Corpuscular Volume 86.3 fL (80-100); Mean Platelet Volume 10.1 fL (7.4-10.4); Monocytes # (auto) 0.73 K/uL (0.11-0.59); Monocytes % (auto) 9.6 %; Neutrophils # (auto) 6.36 K/uL (1.4-6.5); Neutrophils % (auto) 83.7 %; Platelet Count 138 K/uL (130-400); RDW Coefficient of Variation 14.6 % (11.5-14.5); RDW Standard Deviation 46.1 fL (36.4-46.3); Red Blood Count 4.37 M/uL (4.7-6.1)
[2022-02-03 07:43] LABS: Calcium 8.1 mg/dl (8.5-10.1); Creatinine Clr Calc Pharmacy 73.6 ml/min; Est GFR (African American) 86.8 ml/min; Est GFR (Non-African American) 74.9 ml/min; Magnesium 1.5 mg/dl (1.7-2.4)
[2022-02-03] MEDS: ROSUVASTATIN CALCIUM 20 MG TAB PO SCH (07:58)
[2022-02-03] MEDS: MULTIVITAMIN TAB PO SCH (07:58)
[2022-02-03] MEDS: PANTOprazole 40 MG TAB PO SCH ×2 (07:58→20:35)
[2022-02-03 08:11] LABS: Estimated Average Glucose 160 mg/dl; Hemoglobin A1C 7.2 % (4.5-5.6)
--- NOTE | 2022-02-03 08:27 | Urology Consultation ---
Date of Consultation February 03, 2022 Assessment & Plan (1) Calculus of proximal left ureter: (2) Acute UTI (urinary tract infection): 71 yo M with past medical history of hypertension, hyperlipidemia, hx of hyperparathyroidism, s/p parathyroidectomy, diabetes, asthma, and nephrolithiasis admitted for left renal colic secondary to an obstructing left proximal ureteral stone and suspected UTI. - Patient currently afebrile, VSS, nontoxic. - Lab work reviewed - creatinine and WBC are within normal limits. - UA on admission was suspicious for infection. - Urine and blood cultures pending - currently on IV Ceftriaxone, follow cultures. - CTAP notable for an obstructing 9 mm left proximal ureteral calculus with mild hydro; nonobstructing bilateral renal calculi. - Continues to have intermittent pain, currently well managed with prn analgesia. - Discussed options for stone management including left ureteral stent placement later today. - Ureteral stents were discussed as well as post operative course. - Discussed need for stone treatment at a later date after suspected infection has been treated appropriately. - Findings reviewed with Dr. Ross. Given his suspected urinary tract infection and renal colic in the context of an obstructing 9mm left proximal ureteral stone, will proceed with OR for cystoscopy and Left stent placement. - Risks and benefits to be reviewed with patient by Dr. Ross. OR notified. Covid negative. Preoperative CXR and EKG ordered. - Patient agreeable with the plan, all questions answered. - Will cover with scheduled IV Ceftriaxone preoperatively. - Keep NPO for procedure. - Continue supportive care, antibiotics, and management per primary service. - Please consult our service urgently if patient develops fever >101F, intractable pain or nausea, as this will necessitate urgent surgical intervention. Thank you for the consultation and we will continue to monitor closely with primary service. Supervising Physician Co-Signing Physician Notes Discussed patient with YVONNE. Agree with plan. Recommend cystoscopy with left ureteral stent placement due to obstructing stone and urine concerning for infection. Patient is fortunately been stable. Risks and benefits discussed and consent obtained. Patient marked. History of Present Illness Reason for Consultation: Left ureteral stone Requesting Physician: Dr. Mcclure Attending Physician: Ángel Mcclure MD History of Present Illness 71 yo M with past medical history of hypertension, hyperlipidemia, hx of hyperparathyroidism, s/p parathyroidectomy, diabetes, asthma, and nephrolithias is admitted for left renal colic secondary to an obstructing left proximal ureteral stone and suspected UTI. Patient presented to [facility] ED on 02/02/22 with left flank pain, nausea and vomiting. Afebrile on arrival. Lab work and imaging independently reviewed - Creatinine 0.86, WBC 8.33, Hgb 14.0. Urinalysis was notable for positive nitrates, 2+ bacteria, 3+ leukocytes, >30 WBCs, 10-30 RBCs. Urine culture and blood cultures are pending. COVID testing negative. CTAP without contrast reviewed and showed an obstructing left proximal ureteral stone measuring approximately 9 mm with resulting mild left hydronephrosis. Additional nonobstructing renal calculi are noted bilaterally. ED course included IV fluids, IV Ceftriaxone, Tamsulosin, Ondansetron, Fentanyl, and Ketorolac. Patient was admitted to the hospital medicine service. Urology consulted for left ureteral stone. Chart review: Afebrile Creatinine 1.00 WBC 7.60 Hgb 12.9 Urine culture pending Blood cultures pending On IV Ceftriaxone Patient seen and examined at bedside this AM. He is awake, alert and resting in bed. Reports he is currently feeling comfortable. Reports episode of left flank pain at 0400, relieved with IV Dilaudid. No nausea or vomiting at present. He is voiding spontaneously. Notes some urinary frequency and small voids. He feels he is emptying his bladder +/-. No dysuria or hematuria at present. No fever or chi lls. No chest pain or shortness of breath. He is NPO. Reports hx of kidney stones. History of surgical intervention with ureteroscopy, laser lithotripsy, and stent placement with Dr. Trinh about 4-5 years ago. Also reports hx of spontaneous stone passage. He suspects that he passed a small stone a few weeks ago. Also notes he was treated for a UTI with Bactrim around this time. He notes that he had a follow-up with his PCP on 01/30 due to ongoing urinary symptoms. He reports that urine studies were done but he did not hear back about results. Also of note, he reports history of hyperparathyroidism and had parathyroid removed about 2-3 years ago. Reports family history of kidney stones - father, son. Denies family hx of malignancy. Offers no additional concerns at this time. Allergies Allergy/AdvReac Type Severity Reaction Status Date / Time morphine Allergy Mild ITCHING Verified 02/02/22 22:47 banana Allergy Unknown Unverified 02/02/22 22:47 cabbage Allergy Unknown Unverified 02/02/22 22:47 cucumber Allergy Unknown Unverified 02/02/22 22:47 walnut Allergy Unknown Unverified 02/02/22 22:47 Home Medications Medication Instructions Recorded Confirmed Type cinnamon bark 500 mg capsule 500 mg PO QAM 05/21/19 02/02/22 History (Cinnamon) metformin 1,000 mg tablet 1,000 mg PO BID 05/21/19 02/02/22 History multivitamin 1 tab PO QAM 05/21/19 02/02/22 History cyanocobalamin (vitamin B-12) 1,000 mcg PO Q OTHER DAY 02/02/22 02/02/22 History 1,000 mcg tablet (Vitamin B-12) elderberry fruit 200 mg capsule 200 mg PO UD 02/02/22 02/02/22 History losartan 25 mg tablet 25 mg PO DAILY 02/02/22 02/02/22 History omeprazole 20 mg tablet,delayed 20 mg PO BID 02/02/22 02/02/22 History release rosuvastatin 20 mg tablet 20 mg PO DAILY 02/02/22 02/02/22 History hydrochlorothiazide 12.5 mg PO DAILY 02/03/22 02/03/22 History Patient History Medical History Asthma Diabetes Hyperparathyroidism Surgical History H/O lithotripsy H/O parathyroidectomy Family History Father Bilateral kidney stones Son Bilateral kidney stones Other Family history non-contributory Social History Smoking Status: Never smoker Second Hand Exposure: No; Do You Dip or Chew Tobacco: No; Tobacco Cessation Education Requested by Patient: No Hx Alcohol Use: No Hx Substance Use: No Preferred Language: Monegasque Communication Ability: Effective Medical Appointment Clerk Required: No Beliefs That Will Affect Care: None marital status: Current Living Situation: Spouse current occupational status: retired Other Information That Helps Us Care for You: No Feels Safe at Home: Yes Safety Concerns: Feels Safe At This Time Assistive Devices: Contacts and Glasses Review of Systems Constitutional: as per Subjective / HPI Eyes: + corrective lenses Ear, Nose, Mouth, Throat: no problem reported Respiratory: no dyspnea Cardiovascular: no chest pain Gastrointestinal: as per Subjective / HPI Genitourinary: + as per Subjective / HPI Musculoskeletal: no problem reported Integumentary: no problem reported Neurologic: no problem reported Psychiatric: no problem reported Endocrine: no problem reported Physical Exam Constitutional: well developed and well nourished; no acute distress and not ill appearing Eyes: no scleral abnormality Neck: normal visual inspection Respiratory: normal respiratory effort and able to speak in complete sentences; no respiratory distress and no labored breathing Cardiovascular: Extremities: no pedal edema Gastrointestinal (Abdomen): Inspection/Auscultation: abdomen normal to inspection; abdomen not distended Percussion/Palpation: abdomen soft; abdomen nontender and no guarding Musculoskeletal: Head/Neck/Chest: normocephalic and head atraumatic Extremities: extremities normal to inspection Skin: no visible rashes to exposed skin Neurologic: moves all extremities and awake Psychiatric: Orientation: alert and oriented x 3 Eye Contact: good eye contact Genitourinary: no CVA tenderness Results & Data ([facility]) Vital Signs (Past 12 Hours) Vital Signs Temp Pulse Pulse Pulse Resp BP BP 02/03/22 08:03 36.9 C 68 16 114/65 02/03/22 02:49 37.1 C 83 17 156/76 H 02/03/22 02:30 37.1 C 83 17 156/76 H 02/03/22 01:15 67 18 125/73 02/03/22 00:05 67 02/02/22 22:22 36.4 C L 73 18 180/124 H Pulse Ox 02/03/22 08:03 95 02/03/22 02:49 96 02/03/22 02:30 96 02/03/22 01:15 95 02/03/22 00:05 98 02/02/22 22:22 95 Diagnostic Findings ABDOMEN AND PELVIS CT WITHOUT CONTRAST CT DOSE: 1275.05 mGy.cm HISTORY: Left flank pain TECHNIQUE: Multiaxial CT images of the abdomen and pelvis were performed without contrast. A dose lowering technique was utilized adhering to the principles of ALARA. COMPARISON STUDY: Abdomen and pelvis CT 01/02/2012. FINDINGS: A few bibasilar linear densities consistent with subsegmental atelectasis. No pneumoperitoneum. No pneumatosis. Cortical plate and screws seen within the left posterior acetabulum. Bilateral L5 spondylolysis with associated grade 1 anterolisthesis. Healing left anterior sixth rib fractures. The duodenum extends to the midline but does not completely cross the midline. This remains unchanged. Small fat-containing bilateral inguinal hernias. The prostate gland is mildly enlarged. Mild bladder wall thickening may be due to underdistention or chronic outlet obstruction. Multiple colonic diverticula. No evidence for acute diverticulitis. Suboptimal evaluation for bowel pathology due to the lack of intravenous and oral contrast. However, there is no definite bowel wall thickening or obstruction. There is a 2.3 cm fat-containing nodule within the left side the abdomen anterior to the descending colon image 240. This demonstrates a thickened rind and favors a chronic epiploic appendage. No acute inflammatory change to suggest acute process. Subtle nodular contour to the liver consistent with mild cirrhosis. No hepatic or splenic masses identified. The adrenal glands, pancreas, and gallbladder are unremarkable. Multiple bilateral renal calculi. There is an obstructing 8 mm stone within the left ureteropelvic junction resulting in mild left hydronephrosis. Left perinephric edema is likely due to the structure and. Normal caliber abdominal aorta. IMPRESSION: 1. An 8 mm obstructing stone within the left ureteropelvic junction resulting in mild left hydronephrosis. 2. Bilateral nephrolithiasis. 3. Cirrhotic liver. 4. Colonic diverticulosis. No evidence for acute diverticulitis. 5. Additional findings as described above. PG Care Time/CCT Total # of Minutes Spent Total Time Spent with Patient: Total time spent is greater than 50% in coordination of care (as documented) at patient's floor/unit and/or counseling patient: Coding Level of Care Code 86061 Initial Inpt Care Lvl 3 Diagnoses Calculus of proximal left ureter N20.1 Acute UTI (urinary tract infection) N39.0
--- NOTE | 2022-02-03 09:10 | CT Scan Report ---
ABDOMEN AND PELVIS CT WITHOUT CONTRAST CT DOSE: 1275.05 mGy.cm HISTORY: Left flank pain TECHNIQUE: Multiaxial CT images of the abdomen and pelvis were performed without contrast. A dose lo wering technique was utilized adhering to the principles of ALARA. COMPARISON STUDY: Abdomen and pelvis CT 01/02/2012. FINDINGS: A few bibasilar linear densities consistent with subsegmental atelectasis. No pneumoperiton eum. No pneumatosis. Cortical plate and screws seen within the left posterior acetabulum. Bilateral L 5 spondylolysis with associated grade 1 anterolisthesis. Healing left anterior sixth rib fractures. T he duodenum extends to the midline but does not completely cross the midline. This remains unchanged. Small fat-containing bilateral inguinal hernias. The prostate gland is mildly enlarged. Mild bladder wall thickening may be due to underdistention or chronic outlet obstruction. Multiple colonic divert icula. No evidence for acute diverticulitis. Suboptimal evaluation for bowel pathology due to the lac k of intravenous and oral contrast. However, there is no definite bowel wall thickening or obstructio n. There is a 2.3 cm fat-containing nodule within the left side the abdomen anterior to the descendin g colon image 240. This demonstrates a thickened rind and favors a chronic epiploic appendage. No acu te inflammatory change to suggest acute process. Subtle nodular contour to the liver consistent with mild cirrhosis. No hepatic or splenic masses identified. The adrenal glands, pancreas, and gallbladde r are unremarkable. Multiple bilateral renal calculi. There is an obstructing 8 mm stone within the l eft ureteropelvic junction resulting in mild left hydronephrosis. Left perinephric edema is likely du e to the structure and. Normal caliber abdominal aorta. IMPRESSION: 1. An 8 mm obstructing stone within the left ureteropelvic junction resulting in mild left hydronephr osis. 2. Bilateral nephrolithiasis. 3. Cirrhotic liver. 4. Colonic diverticulosis. No evidence for acute diverticulitis. 5. Additional findings as described above. ACT 112: Negative or not required by law. Electronically signed by: Rex Guerrero M.D. 02/03/2022 9:08 AM
--- NOTE | 2022-02-03 09:47 | XRay Report ---
XR chest 1V portable HISTORY: 71 years-old Male Pre-op preoperative exam. COMPARISON: Chest radiograph 05/21/2019 TECHNIQUE: Portable AP view of the chest FINDINGS: Cardiac silhouette is enlarged. No pneumothorax, large pleural effusion or airspace consolidation. Mi ld chronic interstitial coarsening. Degenerative changes of the shoulders and spine. IMPRESSION: No acute process. ACT 112: Negative or not required by law. The above report was generated using voice recognition software. It may contain grammatical, syntax o r spelling errors. Electronically signed by: Jhonathan Watt M.D. 02/03/2022 9:46 AM
--- NOTE | 2022-02-03 11:08 | Anesthesiology Consultation ---
Date of Service February 03, 2022 Assessment & Plan (1) Encounter for pre-operative examination: Chart Review Chart Review: Acceptable Risk for Surgery and Patient NOT seen in Pre Admission Testing Consults Requested none History Surgery Operation Date: 02/03/22 07:00 Proposed Procedures p Cystoscopy Left Stent Placement - Yariel Ross MD Height/Weight Height: 5 ft 9 in Weight: 88.8 kg Allergies Allergy/AdvReac Type Severity Reaction Status Date / Time morphine Allergy Mild ITCHING Verified 02/02/22 22:47 banana Allergy Unknown Unverified 02/02/22 22:47 cabbage Allergy Unknown Unverified 02/02/22 22:47 cucumber Allergy Unknown Unverified 02/02/22 22:47 walnut Allergy Unknown Unverified 02/02/22 22:47 Medications Home Medications Medication Instructions Recorded Confirmed Last Taken cinnamon bark 500 mg capsule 500 mg PO QAM 05/21/19 02/02/22 02/02/22 (Cinnamon) metformin 1,000 mg tablet 1,000 mg PO BID 05/21/19 02/02/22 02/02/22 multivitamin 1 tab PO QAM 05/21/19 02/02/22 02/02/22 cyanocobalamin (vitamin B-12) 1,000 mcg PO Q OTHER DAY 02/02/22 02/02/22 02/01/22 1,000 mcg tablet (Vitamin B-12) elderberry fruit 200 mg capsule 200 mg PO UD 02/02/22 02/02/22 02/02/22 losartan 25 mg tablet 25 mg PO DAILY 02/02/22 02/02/22 02/02/22 omeprazole 20 mg tablet,delayed 20 mg PO BID 02/02/22 02/02/22 02/02/22 release rosuvastatin 20 mg tablet 20 mg PO DAILY 02/02/22 02/02/22 02/02/22 hydrochlorothiazide 12.5 mg PO DAILY 02/03/22 02/03/22 Unknown Active Medications Generic Name Dose Route Start Last Admin Trade Name Freq PRN Reason Stop Dose Admin Hydromorphone HCl 0.5 mg 02/03/22 02:41 02/03/22 03:55 Hydromorphone Inj 0.5 Mg/0.5 Ml Syr IV 02/17/22 02:40 0.5 mg Q3H PRN Administration Pain Sodium Chloride 1,000 mls @ 100 mls/hr 02/03/22 02:41 02/03/22 06:19 Nss 1000ml IV 03/05/22 02:40 100 mls/hr .Q10H JUAN Infusion Insulin Aspart 0 units 02/03/22 06:00 02/03/22 06:19 Insulin Aspart Per Unit SC 03/05/22 05:59 1 units Q6 JUAN Administration Multivitamins 1 tab 02/03/22 09:00 02/03/22 07:58 Multivitamin Tab PO 03/05/22 08:59 1 tab QAM JUAN Administration Pantoprazole Sodium 40 mg 02/03/22 09:00 02/03/22 07:58 Pantoprazole 40 Mg Tab PO 03/05/22 08:59 40 mg BID JUAN Administration Rosuvastatin Calcium 20 mg 02/03/22 09:00 02/03/22 07:58 Rosuvastatin Calcium 20 Mg Tab PO 03/05/22 08:59 20 mg DAILY JUAN Administration NPO Date Last Intake of Fluids: 02/03/22 Time Last Intake of Fluids: 02:30 Date Last Intake of Solids: 02/03/22 Time Last Intake of Solids: 02:30 Past Medical History Medical History Asthma Diabetes Hyperparathyroidism Past Family History Family History Father Bilateral kidney stones Son Bilateral kidney stones Other Family history non-contributory Past Surgical History Surgical History H/O lithotripsy H/O parathyroidectomy Social History Smoking Status: Never smoker Do You Dip or Chew Tobacco: No Hx Alcohol Use: No Hx Substance Use: No Physical Exam Vital Signs Last Vital Signs Temp 98.4 F 02/03/22 08:03 Pulse 68 02/03/22 08:03 Resp 16 02/03/22 08:03 BP 114/65 02/03/22 08:03 Pulse Ox 95 02/03/22 08:03 Testing Laboratory Results 02/03/22 06:54 02/03/22 06:54 Hemoglobin A1c 7.2 % (4.5-5.6) H 02/03/22 06:54 Urine Color Yellow 02/02/22 22:52 Urine Appearance Cloudy (Clear) A 02/02/22 22:52 Urine pH 5.0 (4.5-7.5) 02/02/22 22:52 Ur Specific [place] 1.017 (1.000-1.030) 02/02/22 22:52 Urine Protein 1+ (Negative) H 02/02/22 22:52 Urine Glucose (UA) Negative (Negative) 02/02/22 22:52 Urine Ketones 1+ (Negative) H 02/02/22 22:52 Urine Nitrite Positive (Negative) A 02/02/22 22:52 Ur Leukocyte Esterase 3+ (Negative) H 02/02/22 22:52 Urine WBC (Auto) >30 /hpf (0-5) H 02/02/22 22:52 Urine RBC (Auto) 10-30 /hpf (0-4) H 02/02/22 22:52 U Hyaline Cast (Auto) 1-5 /lpf (0-5) 02/02/22 22:52 U Epithel Cells (Auto) 0-5 /lpf (0-5) 02/02/22 22:52 Urine Bacteria (Auto) 2+ (Negative) H 02/02/22 22:52 02/03/22 06:00 POC Glucose 174 H Electrocardiogram Date: 02/03/22 Findings: + NSR @ Chest X-Ray Date: 02/03/22 Findings: + NAD
--- NOTE | 2022-02-03 15:32 | Electrocardiogram Report ---
Test Reason : Blood Pressure : / mmHG Vent. Rate : 073 BPM Atrial Rate : 073 BPM P-R Int : 152 ms QRS Dur : 076 ms QT Int : 382 ms P-R-T Axes : 037 025 047 degrees QTc Int : 420 ms Normal sinus rhythm with occasional Premature atrial complexes Low voltage QRS Borderline ECG When compared with ECG of 21-MAY-2019 11:05, Premature atrial complexes now present Otherwise no significant change Confirmed by Geoff Hernandez ([id number]) on 02/03/2022 3:32:22 PM Referred By: REFERRED SELF Confirmed By:Geoff Hernandez
[2022-02-03] MEDS ORDERED: LIDOCAINE 2% 2 ML VIAL/AMP(20MG/ML) INFIL ONE (15:45)
[2022-02-03] MEDS ORDERED: MIDAZOLAM HCL 1 MG/ML 2ML VIAL ONE (15:45)
[2022-02-03] MEDS ORDERED: ONDANSETRON INJ 2 MG/ML 2 ML VIAL ONE (15:45)
[2022-02-03] MEDS ORDERED: fentaNYL citrate 100 MCG/2 ML VIAL ONE ×2 (15:45→16:37)
[2022-02-03] MEDS ORDERED: PROPOFOL IV EMULSION 10 MG/ML 20 ML VIAL IV ONE (15:45)
[2022-02-03] MEDS ORDERED: fentaNYL citrate 100 MCG/2 ML VIAL IV PRN (16:14)
[2022-02-03] MEDS ORDERED: FAMOTIDINE/PF 20 MG/2 ML VIAL IV ONE (16:14)
[2022-02-03] MEDS ORDERED: ePHEDrine sulfate 50 MG/ML AMP IV PRN (16:14)
[2022-02-03] MEDS ORDERED: ATROPINE SULFATE 0.1 MG/ML 10ML SYR IV PRN (16:14)
--- NOTE | 2022-02-03 16:24 | Operative Report ---
PG Post Operative Report Pre & Post Diagnosis Left ureteral calculus with concern for infection Operation Date: 02/03/22 07:00 <No data on this case meets the specified criteria> Left ureteral calculus with concern for infection I identified the patient and participated in the time-out.: Yes Procedure Cystoscopy, left retrograde pyelogram with radiographic interpretation, left ureteral stent placement, Gamez catheter placement Operation Date: 02/03/22 07:00 <No data on this case meets the specified criteria> Surgeon Yariel Ross MD Clinical Systems Educator None Estimated Blood Loss 0 Findings See Below 1. Cloudy urine in bladder and from left ureteral orifice. 2. Left retrograde pyelogram with filling defect where stone noted on CT scan and proximal ureter 3. Stent in good position in the kidney 4. Gamez catheter left in place due to concern for infection Specimens None Drains 1. 6 [place] by 26 cm left ureteral stent 2. 18 [place] Gamez catheter with 10 cc in balloon Anesthesia Type General Indications 71-year-old male who presented with a left proximal ureteral calculus and UA concerning for infection. Labs showed no leukocytosis and a stable creatinine. He was given Rocephin. Risks and benefits were discussed and in setting of obstructing stone with concern for infection, recommended he undergo cystoscopy with left ureteral stent placement. Description of Procedure After informed consent was obtained, the patient was transported operative suite. General anesthesia was induced. The patient was placed in dorsal lithotomy position prepped and draped in a sterile fashion. They received preoperative ceftriaxone for antibiotic prophylaxis. An appropriate surgical timeout was performed. A 22 [place] rigid scope was inserted per urethra into the bladder. Romero cystoscopy revealed no stones or lesions. There was purulent urine in the bladder. turned my attention the left ureteral orifice and intubated this with a 5 [place] open-ended catheter. A left retrograde pyelogram was shot which showed a filling defect in the left proximal ureter. A sensor wire was advanced into the kidney and confirmed fluoroscopically. A 6 [place] by 26 cm left ureteral stent was deployed with a good proximal coil in the renal pelvis and a good distal coil noted in the bladder. These were confirmed fluoroscopically and under direct visualization, respectively. The bladder was left full and the scope was removed. 18 [place] Gamez catheter was placed with return of urine. The balloon was inflated with 10 cc of sterile water. This concluded the end of the case. All counts were correct at the end of the case. I was present, scrubbed, and actively participated for the entirety of the procedure. I attest to the content of the Intraoperative Record and any orders documented therein. Any exceptions are noted below.
--- NOTE | 2022-02-03 16:26 | Post Operative Brief Note ---
PG Immediate Post Op with CF Date of Surgery February 03, 2022 Pre & Post Diagnosis Left ureteral calculus with concern for urinary tract infection Operation Date: 02/03/22 07:00 <No data on this case meets the specified criteria> Left ureteral calculus with concern for urinary tract infection I identified the patient and participated in the time-out.: Yes Procedure Cystoscopy, left retrograde pyelogram, left ureteral stent placement Operation Date: 02/03/22 07:00 <No data on this case meets the specified criteria> Surgeon Yariel Ross MD [employer] Machines Setter None Estimated Blood Loss 0 Findings See Below Cloudy urine in bladder Stent in good position Gamez placed due to infection Drains Gamez Catheter (18Fr) and Other (6x26 left stent ) Anesthesia Type General Complications None Disposition Accompanied Patient To Recovery: No Disposition: Recovery Room Overlapping Procedure I was present for: the critical portions of procedure.
[2022-02-03] MEDS ORDERED: DIATRIZOATE MEGLUMINE 30% 100ML VIAL INSTIL ONE (17:01)
--- NOTE | 2022-02-03 17:01 | Communication Note ---
Date of Service: February 03, 2022 A 71-year-old male with past medical history significant for type 2 diabetes, primary hyperparathyroidism, diabetic neuropathy, hyperlipidemia, asthma, in remission, portal hypertension, TERAN, GERD without esophagitis, history of gastric ulcer, history of kidney stones, history of melanoma of skin, who presents with left flank pain and noted to have left ureteric stone with UTI, He is status post left ureteric stent placement. Denies any significant symptoms and remains hemodynamically stable. We will continue antibiotic, Flomax and Ditropan, Full progress note will be done tomorrow. Dr Ele Mcclure
--- NOTE | 2022-02-03 17:15 | Anesthesiology Progress Note ---
Date of Service February 03, 2022 Anesthesia Post Procedure Vital Signs Vital Signs: Temp Pulse Pulse Pulse Resp BP BP 02/03/22 17:05 74 19 107/57 L 02/03/22 16:55 37.2 C 82 17 104/57 L 02/03/22 16:01 37.9 C H 70 18 120/69 02/03/22 15:49 37.5 C 65 16 111/64 02/03/22 08:03 36.9 C 68 16 114/65 02/03/22 02:49 37.1 C 83 17 156/76 H 02/03/22 02:30 37.1 C 83 17 156/76 H 02/03/22 01:15 67 18 125/73 02/03/22 00:05 67 02/02/22 22:22 36.4 C L 73 18 180/124 H Pulse Ox 02/03/22 17:05 98 02/03/22 16:55 97 02/03/22 16:01 97 02/03/22 15:49 95 02/03/22 08:03 95 02/03/22 02:49 96 02/03/22 02:30 96 02/03/22 01:15 95 02/03/22 00:05 98 02/02/22 22:22 95 Pain Intensity Left Flank: Pain Intensity: 1 Transfer of Care Handoff Completed per policy Notes Mental Status: alert / awake / arousable and participated in evaluation Patient Amnestic to Procedure: Yes Nausea / Vomiting: adequately controlled Pain: adequately controlled Airway Patency, RR, SpO2: stable & adequate BP & HR: stable & adequate Hydration State: stable & adequate Anesthetic Complications: no major complications apparent and Pt Satisfied with anesthetic care
[2022-02-03] MEDS ORDERED: Nursing to Pharmacy Communication SCH (18:00)
--- NOTE | 2022-02-03 18:59 | Fluoroscopy Report ---
FL retrograde includes kub CLINICAL HISTORY: LT STENT COMPARISON STUDY: CT of the abdomen and pelvis from 02/02/2022 FLUOROSCOPY TIME: 12 seconds. FLUOROSCOPIC IMAGES: 3 FINDINGS: Retrograde urethrogram was performed with what appears to be a stone within the lower pole of the left kidney. Subsequently, a double-J ureteral stent was placed on the left. IMPRESSION: Placement of a double-J ureteral stent on the left. ACT 112: Negative or not required by law. Electronically signed by: Luis Herrera M.D. 02/03/2022 6:58 PM
[2022-02-03] MEDS: TAMSULOSIN HCL 0.4 MG CAP PO SCH (20:35)
[2022-02-03] MEDS: OXYBUTYNIN CHLORIDE 5 MG TAB PO SCH (21:32)
[2022-02-03] MEDS: cefTRIAXone SODIUM 2,000 MG in DEXTROSE 5% 50 ML IV SCH (21:45)
[2022-02-04] MEDS: SODIUM CHLORIDE 0.9% 1000ML 1,000 ML IV SCH ×2 (00:24→09:09)
[2022-02-04 06:55] LABS: Basophils # (auto) 0.01 K/uL (0-0.2); Basophils % (auto) 0.2 %; Calcium 8.5 mg/dl (8.5-10.1); Creatinine Clr Calc Pharmacy 98.1 ml/min; Eosinophils # (auto) 0.01 K/uL (0-0.5); Eosinophils % (auto) 0.2 %; Est GFR (African American) 106.2 ml/min; Est GFR (Non-African American) 91.6 ml/min; Hematocrit (blood only) 36.1 % (42-52); Hemoglobin 12.2 g/dL (14.0-18.0); Immature Granulocytes # (auto) 0.01 K/uL (0.00-0.02); Immature Granulocytes % (auto) 0.2 %; Lymphocytes # (auto) 1.03 K/uL (1.2-3.4); Lymphocytes % (auto) 16.1 %; Mean Corpuscular Hemoglobin 29.6 pg (25-34); Mean Corpuscular Hgb Conc 33.8 g/dL (32-36); Mean Corpuscular Volume 87.6 fL (80-100); Mean Platelet Volume 10.4 fL (7.4-10.4); Monocytes # (auto) 0.71 K/uL (0.11-0.59); Monocytes % (auto) 11.1 %; Neutrophils # (auto) 4.63 K/uL (1.4-6.5); Neutrophils % (auto) 72.2 %; Platelet Count 124 K/uL (130-400); Potassium 3.8 mmol/L (3.5-5.1); RDW Coefficient of Variation 14.9 % (11.5-14.5); RDW Standard Deviation 47.7 fL (36.4-46.3); Red Blood Count 4.12 M/uL (4.7-6.1)
[2022-02-04] MEDS: INSULIN ASPART PER UNIT SC SCH ×5 (06:56→21:03)
--- NOTE | 2022-02-04 08:55 | Urology Progress Note ---
Date of Service February 04, 2022 Assessment & Plan (1) Calculus of proximal left ureter: (2) Acute UTI (urinary tract infection): Plan: 71yo M admitted for left renal colic secondary to an obstructing left proximal ureteral stone and suspected UTI. - POD #1 s/p Cystoscopy, left retrograde pyelogram with radiographic interpretation, left ureteral stent placement, Gamez catheter placement with Dr. Ross. - Patient feeling well following his procedure yesterday, tolerating the ureteral stent with minimal bother. - No fevers overnight. Had 37.6C temp this morning. Remains hemodynamically stable. - Labs reviewed - White count and creatinine normal. - Urine culture preliminary gram negative bacilli; Blood cultures prelim no growth x 24 hours. - Continues on IV Ceftriaxone, follow cultures. - Gamez catheter intact and draining yellow urine, output appears adequate. - Okay to d/c Gamez catheter this morning and monitor for void. Bladder scan as needed. - Plan to discharge when medically stable per primary team with course of appropriate PO antibiotics per final culture, Tamsulosin, prn Pyridium and prn pain medication for stent management. - Will arrange outpatient follow-up for stone treatment after infection has resolved. - Expected clinical course reviewed, all questions were answered. - Urology will sign off. - Thank you for allowing us to participate in the acute care of Mr. Nassar. Please contact us with additional questions, concerns or changes in patient status. Admission and Anticipated Discharge Date Admission Date: February 03, 2022 Supervising Physician Co-Signing Physician Notes Discussed patient with YVONNE. Agree with plan. Subjective Patient examined at bedside this AM. Awake, resting in bed on arrival. No acute issues overnight. Overall feeling well this morning. No fevers overnight - Temp 37.6 this morning. Denies pain or discomfort at present. Gamez intact, draining yellow urine with small amount of sediment in tubing. No hematuria/dysuria. Tolerating diet, no nausea vomiting. +Flatus. No additional complaints at time of exam. Review of Systems Constitutional: as per Subjective / HPI Gastrointestinal: as per Subjective / HPI Genitourinary: + as per Subjective / HPI Physical Exam Constitutional: cooperative and comfortable; no acute distress Respiratory: no respiratory distress and no labored breathing Gastrointestinal (Abdomen): Inspection/Auscultation: abdomen normal to inspection Percussion/Palpation: abdomen soft; abdomen nontender and no guarding Skin: No visible rashes to exposed skin areas. Neurologic: moves all extremities and awake Psychiatric: Orientation: alert and oriented x 3 Genitourinary: no CVA tenderness Gamez catheter intact Results & Data ([facility]) Vital Signs (Past 12 Hours) Vital Signs Temp Pulse Resp BP Pulse Ox 02/04/22 07:52 37.6 C H 65 16 118/64 94 02/04/22 04:00 36.8 C 64 17 126/72 94 02/03/22 23:21 36.9 C 75 17 109/63 95 02/03/22 20:52 37.1 C 62 17 107/61 97 PG Care Time/CCT Total # of Minutes Spent Total Time Spent with Patient: Total time spent is greater than 50% in coordination of care (as documented) at patient's floor/unit and/or counseling patient: Coding Level of Care Code 30047 Subseq Hosp Care Lvl 2 Diagnoses Calculus of proximal left ureter N20.1 Acute UTI (urinary tract infection) N39.0
[2022-02-04] MEDS: PANTOprazole 40 MG TAB PO SCH ×2 (08:59→21:04)
[2022-02-04] MEDS: ROSUVASTATIN CALCIUM 20 MG TAB PO SCH (09:00)
[2022-02-04] MEDS: OXYBUTYNIN CHLORIDE 5 MG TAB PO SCH ×2 (09:00→21:04)
[2022-02-04] MEDS: MULTIVITAMIN TAB PO SCH (09:00)
[2022-02-04] MEDS ORDERED: CYANOCOBALAMIN (B-12) 500 MCG TABLET PO SCH (09:00)
--- NOTE | 2022-02-04 11:09 | Hospitalist Progress Note ---
Date of Service February 04, 2022 Assessment & Plan (1) Calculus of proximal left ureter: (2) Acute UTI (urinary tract infection): (3) Diabetes: (4) HTN (hypertension): Plan: This is a 71-year-old male who has significant past medical history of T2DM, HTN, HLD, asthma, Teran comport hypertension, GERD, history of gastric ulcer, history of kidney stones who presented to ED secondary to left renal colic and urinary tract infection. Calculus of proximal left ureter Acute UTI Left renal colic POD #1 status post cystoscopy, left retrograde pyelogram with left ureteral stent placement and Gamez catheter placement He tolerated procedure well Gamez cath removed this morning, mild dysuria Continue Flomax, as needed Pyridium, pain control IV fluids discontinued as patient is tolerating oral intake, encouraged to stay well-hydrated Urine culture growing greater than 100,000 gram-negative rods Continue IV Rocephin, await urine culture which will likely result tomorrow a.m. and then will transition to oral antibiotics Discussed with pharmacy to re time Rocephin for 02/05 to ensure IV antibiotic prior to d/c Recent urine cultures as outpatient in December grew Citrobacter, previously treated with oral Bactrim Urology will arrange follow-up as outpatient T2DM A1c 7.4 on 12/30/2021 Well controlled, Metformin on hold NovoLog per protocol HTN Blood pressure stable on losartan and HCTZ as outpatient Currently on hold, BP 118/64 Reevaluate in a.m. to resume at discharge HLD continue statin DVT ppx: SCDS per urology, encourage ambulation Dispo: likely d/c home tomorrow after urine culture results FULL CODE PCP: Driss Pt was seen and examined in collaboration with Dr. Guy, please see addendum Admission and Anticipated Discharge Date Admission Date: February 03, 2022 Supervising Physician Co-Signing Physician Notes This 71-year-old gentleman with PMH of T2DM, HTN, HLD, asthma, TERAN, GERD, gastric ulcer, kidney stones who is being managed for left ureteral calculus status post left ureteral stent placement 02/03 by urology and is also being managed for acute UTI. Patient will need to follow-up with urology as an outpatient. Continue with antibiotic. Can take out Agmez today. Upon examination, on room air, negative for edema, heart lungs and abdominal examination WNL. Likely DC tomorrow. I have seen and examined the patient and have discussed the case with the prov ider above. I agree with the examination/assessment and plan as stated. Subjective Patient was seen and examined in room 312. Follow-up for left ureteral stent placement. He feels well this morning and is sitting up at bedside. He has a good appetite. His Gamez catheter was removed. He ambulated into bathroom and cleaned up. He denies any fever, chills, sweats, lightheadedness, dizziness, chest pain, shortness rectal nausea, vomiting, abdominal pain. His left flank pain has resolved. He states he fell approximately 1 month ago and was having back and left rib pain. He just assumed may be he bruised some ribs. His pain has since resolved after stent placement, and is wondering if it was all related to stone. He does complain of slight dysuria. Review of Systems Review of Systems: All systems reviewed & are unremarkable except as noted in HPI & below Physical Exam Physical Exam: Gen: WD/WN, male, sitting up at bedside, NAD, A&O x3 HEENT: Normocephalic, atraumatic, conjunctivae moist, sclerae anicteric, mucous membranes moist. Lung: Clear to Auscultation bilaterally, no wheezes/rales/rhonchi Heart: Regular rate, regular rhythm, no murmurs, rubs, or gallops Abdomen: Soft, NT, ND +BS x 4 Extremities: Mild bilateral lymphedema noted, bilateral varicosities, mild venous stasis change Skin: Warm, no rash, negative turgor. Results & Data Results & Data ([facility]) Vital Signs (Past 12 Hours) Vital Signs Temp Pulse Resp BP Pulse Ox 02/04/22 07:52 37.6 C H 65 16 118/64 94 02/04/22 04:00 36.8 C 64 17 126/72 94 02/03/22 23:21 36.9 C 75 17 109/63 95 Laboratory Results Short CBC 02/04/22 Range/Units 06:12 WBC 6.40 (4.8-10.8) K/uL Hgb 12.2 L (14.0-18.0) g/dL Hct 36.1 L (42-52) % Plt Count 124 L (130-400) K/uL BMP 02/04/22 06:12 Sodium 136 Potassium 3.8 Chloride 103 Carbon Dioxide 28 BUN 18 Creatinine 0.75 Glucose 142 H Calcium 8.5 Urine culture growing greater than 100,000 gram-negative rods Medications Administered Current Inpatient Medications Acetaminophen (Acetaminophen 325 Mg Tab) 650 mg PO Q4H PRN PRN Reason: pain/fever Stop: 03/05/22 02:40 Cyanocobalamin (Cyanocobalamin (B-12) 500 Mcg Tablet) 1,000 mcg PO Q2D JUAN Stop: 03/06/22 08:59 Last Admin: 02/04/22 09:00 Dose: 1,000 mcg Documented by: Dextrose (Dextrose 50% 50 Ml Syringe) 25 - 50 ml IV UD PRN; Protocol PRN Reason: Hypoglycemia Protocol Stop: 03/05/22 02:59 Glucagon (Glucagon For Inj 1 Mg Vial) 1 mg IM UD PRN; Protocol PRN Reason: Hypoglycemia Protocol Stop: 03/05/22 02:59 Glucose (Glucose 40% Gel 15 Gm Tube) 15 - 30 gm PO UD PRN; Protocol PRN Reason: Hypoglycemia Protocol Stop: 03/05/22 02:59 Glucose (Glucose 10 Tabs/Tube) 4 - 8 tabs PO UD PRN; Protocol PRN Reason: Hypoglycemia Protocol Stop: 03/05/22 02:59 Hydralazine HCl (Hydralazine Hcl 20 Mg/Ml Vial) 5 mg IV Q6H PRN PRN Reason: Hypertension Stop: 03/05/22 02:40 Hydromorphone HCl (Hydromorphone Inj 0.5 Mg/0.5 Ml Syr) 0.5 mg IV Q3H PRN PRN Reason: Pain Stop: 02/17/22 02:40 Last Admin: 02/03/22 03:55 Dose: 0.5 mg Documented by: Ceftriaxone Sodium 2,000 mg/ (Dextrose) 70 mls @ 100 mls/hr IV Q24H JUAN; Protocol Stop: 02/13/22 21:59 Last Infusion: 02/03/22 22:30 Dose: Infused Documented by: Insulin Aspart (Insulin Aspart Per Unit) 0 units SC ACHS JUAN Stop: 03/05/22 18:39 Last Admin: 02/04/22 09:02 Dose: 4 units Documented by: Miscellaneous (Carbohydrates For Hypoglycemia ) 15 - 30 gm PO UD PRN PRN Reason: Hypoglycemia Treatment Stop: 03/05/22 02:59 Multivitamins (Multivitamin Tab) 1 tab PO QAM JUAN Stop: 03/05/22 08:59 Last Admin: 02/04/22 09:00 Dose: 1 tab Documented by: Ondansetron HCl (Ondansetron Inj 2 Mg/Ml 2 Ml Vial) 4 mg IV Q6H PRN PRN Reason: Nausea Stop: 03/05/22 02:40 Oxybutynin Chloride (Oxybutynin Chloride 5 Mg Tab) 5 mg PO BID JUAN Stop: 03/05/22 20:59 Last Admin: 02/04/22 09:00 Dose: 5 mg Documented by: Pantoprazole Sodium (Pantoprazole 40 Mg Tab) 40 mg PO BID JUAN Stop: 03/05/22 08:59 Last Admin: 02/04/22 08:59 Dose: 40 mg Documented by: Polyethylene Glycol (Polyethylene (Miralax) 17 Gm Pack) 17 gm PO DAILY PRN PRN Reason: Constipation Stop: 03/05/22 02:40 Rosuvastatin Calcium (Rosuvastatin Calcium 20 Mg Tab) 20 mg PO DAILY JUAN Stop: 03/05/22 08:59 Last Admin: 02/04/22 09:00 Dose: 20 mg Documented by: Tamsulosin HCl (Tamsulosin Hcl 0.4 Mg Cap) 0.4 mg PO HS [facility] Stop: 03/05/22 20:59 Last Admin: 02/03/22 20:35 Dose: 0.4 mg Documented by:
[2022-02-04] MEDS ORDERED: PHENAZOPYRIDINE HCL 100 MG TAB PO PRN (11:30)
[2022-02-04] MEDS: TAMSULOSIN HCL 0.4 MG CAP PO SCH (21:04)
[2022-02-04] MEDS: cefTRIAXone SODIUM 2,000 MG in DEXTROSE 5% 50 ML IV SCH (21:52)
[2022-02-05] MEDS: OXYBUTYNIN CHLORIDE 5 MG TAB PO SCH (07:30)
[2022-02-05] MEDS: ROSUVASTATIN CALCIUM 20 MG TAB PO SCH (07:30)
[2022-02-05] MEDS: MULTIVITAMIN TAB PO SCH (07:30)
[2022-02-05] MEDS: PANTOprazole 40 MG TAB PO SCH (07:30)
[2022-02-05 08:10] LABS: Hematocrit (blood only) 37.8 % (42-52); Mean Corpuscular Hemoglobin 29.5 pg (25-34); Mean Corpuscular Hgb Conc 34.4 g/dL (32-36); Mean Corpuscular Volume 85.7 fL (80-100); Mean Platelet Volume 10.3 fL (7.4-10.4); Platelet Count 148 K/uL (130-400); RDW Coefficient of Variation 14.4 % (11.5-14.5); RDW Standard Deviation 45.4 fL (36.4-46.3); Red Blood Count 4.41 M/uL (4.7-6.1); White Blood Count 6.34 K/uL (4.8-10.8)
[2022-02-05 08:35] LABS: BUN Creatinine Ratio 23.9 (10-20); Creatinine Clr Calc Pharmacy 103.7 ml/min; Est GFR (African American) 108.6 ml/min; Est GFR (Non-African American) 93.7 ml/min; Potassium 3.4 mmol/L (3.5-5.1)
[2022-02-05] MEDS: INSULIN ASPART PER UNIT SC SCH (08:38)
[2022-02-05] MEDS ORDERED: LOSARTAN POTASSIUM 25 MG TAB PO SCH (09:00)
[2022-02-05] MEDS ORDERED: hydroCHLOROthiazide 25 MG TAB PO SCH (09:00)
[2022-02-05] MEDS ORDERED: POTASSIUM CHLORIDE CRTAB 20 MEQ TABCR PO STA (09:16)
[2022-02-05] MEDS: cefTRIAXone SODIUM 2,000 MG in DEXTROSE 5% 50 ML IV SCH (10:13)
--- NOTE | 2022-02-05 16:39 | Discharge Summary ---
Date of Service February 05, 2022 Admission HPI Per Admitting Provider A 71-year-old male with past medical history significant for type 2 diabetes, primary hyperparathyroidism, diabetic neuropathy, hyperlipidemia, asthma, in remission, portal hypertension, MILLER, GERD without esophagitis, history of gastric ulcer, history of kidney stones, history of melanoma of skin, who presents with left flank pain. The patient says he had history of kidney stones in the past. At one time, he had stent that was placed about 4 years ago. Yesterday in the evening around 6:00 p.m., he started having severe pain in the left flank region. Associated with pain, he had several episodes of dry heaves and 1 episode of vomiting in the ER. He is also having likely increased frequency of urination for the last 2 days. Denies any burning micturition, no blood in the urine. No fever, no chills, no diarrhea. He has been slightly constipated that got resolved. Denies any chest pain, no shortness of breath. Appetite is okay. No difficulty swallowing. He had some headache during the episode, that resolved now. Some runny nose today. No blurred visions, no earache, no sore throat. No cough. Currently resting comfortably and hemodynamically stable. Admission Exam Per Admitting Provider GENERAL: The patient is of moderate build, not in acute distress. VITAL SIGNS: Temperature 36.4, pulse 67, respiratory rate 18, blood pressure 125/73, oxygen 95% on room air. HEENT: Pupils equal, round and reactive to light. Oral mucosa moist. NECK: No JVD, no neck masses. CARDIOVASCULAR: S1 and S2 heard. Regular rate and rhythm. No murmur, no gallop. RESPIRATORY SYSTEM: Normal AP diameter. No accessory muscle use. No wheezing, no crackles. ABDOMEN: Soft, bowel sounds present. Mild left lower quadrant tenderness. No CVA tenderness. No guarding. No rigidity, no distention. CENTRAL NERVOUS SYSTEM: Cranial nerves II-XII grossly intact, nonfocal. EXTREMITIES: Bilateral mild edema present, no erythema seen. Principal Diagnosis Left ureteral stone with Citrobacter UTI Discharge Exam Constitutional WD/WN, vitals as above Respiratory normal respiratory effort, lungs clear to auscultation Cardiovascular Rate/Rhythm: regular rate and regular rhythm Vessels: normal peripheral pulses Extremities: no edema Gastrointestinal (Abdomen) Percussion/Palpation: abdomen soft; abdomen nontender Skin no rashes, warm and dry Neurologic no focal motor deficits Psychiatric A+Ox3, euthymic affect Genitourinary no CVA tenderness Discharge Data Allergies Allergy/AdvReac Type Severity Reaction Status Date / Time morphine Allergy Mild ITCHING Verified 02/02/22 22:47 banana Allergy Unknown Unverified 02/02/22 22:47 cabbage Allergy Unknown Unverified 02/02/22 22:47 cucumber Allergy Unknown Unverified 02/02/22 22:47 walnut Allergy Unknown Unverified 02/02/22 22:47 Consultations 02/03/22 08:00 Consult Urology Routine Procedures Performed Operation Date: 02/03/22 07:00 Actual Procedures p Cystoscopy Left Stent Placement(Left) - Yariel Ross MD Ordered Studies Laboratory Results WBC 6.34 K/uL (4.8-10.8) 02/05/22 07:31 RBC 4.41 M/uL (4.7-6.1) L 02/05/22 07:31 Hgb 13.0 g/dL (14.0-18.0) L 02/05/22 07:31 Hct 37.8 % (42-52) L 02/05/22 07:31 MCV 85.7 fL (80-100) 02/05/22 07:31 MCH 29.5 pg (25-34) 02/05/22 07:31 MCHC 34.4 g/dL (32-36) 02/05/22 07:31 RDW Std Deviation 45.4 fL (36.4-46.3) 02/05/22 07:31 RDW Coeff of Surinder 14.4 % (11.5-14.5) 02/05/22 07:31 Plt Count 148 K/uL (130-400) 02/05/22 07:31 MPV 10.3 fL (7.4-10.4) 02/05/22 07:31 Immature Gran % (Auto) 0.2 % 02/04/22 06:12 Neut % (Auto) 72.2 % 02/04/22 06:12 Lymph % (Auto) 16.1 % 02/04/22 06:12 [place] % (Auto) 11.1 % 02/04/22 06:12 Eos % (Auto) 0.2 % 02/04/22 06:12 Baso % (Auto) 0.2 % 02/04/22 06:12 Neut # (Auto) 4.63 K/uL (1.4-6.5) 02/04/22 06:12 Lymph # (Auto) 1.03 K/uL (1.2-3.4) L 02/04/22 06:12 [place] # (Auto) 0.71 K/uL (0.11-0.59) H 02/04/22 06:12 Eos # (Auto) 0.01 K/uL (0-0.5) 02/04/22 06:12 Baso # (Auto) 0.01 K/uL (0-0.2) 02/04/22 06:12 Immature Gran # (Auto) 0.01 K/uL (0.00-0.02) 02/04/22 06:12 Sodium 134 mmol/L (136-145) L 02/05/22 07:31 Potassium 3.4 mmol/L (3.5-5.1) L 02/05/22 07:31 Chloride 103 mmol/L (98-107) 02/05/22 07:31 Carbon Dioxide 22 mmol/L (21-32) 02/05/22 07:31 Anion Gap 9 (3-11) 02/05/22 07:31 BUN 17 mg/dl (6-23) 02/05/22 07:31 Creatinine 0.71 mg/dl (0.6-1.4) 02/05/22 07:31 Est Cr Clr Drug Dosing 103.7 ml/min 02/05/22 07:31 Est GFR ( Amer) 108.6 ml/min 02/05/22 07:31 Est GFR (Non-Af Amer) 93.7 ml/min 02/05/22 07:31 BUN/Creatinine Ratio 23.9 (10-20) H 02/05/22 07:31 Glucose 138 mg/dl (70-99(Fasting)) H 02/05/22 07:31 POC Glucose 134 mg/dl (70-99) H 02/05/22 08:08 Estimat Average Glucose 160 mg/dl 02/03/22 06:54 Hemoglobin A1c 7.2 % (4.5-5.6) H 02/03/22 06:54 Calcium 8.0 mg/dl (8.5-10.1) L 02/05/22 07:31 Magnesium 1.5 mg/dl (1.7-2.4) L 02/03/22 06:54 Total Bilirubin 0.9 mg/dl (0.2-1.0) 02/02/22 23:23 AST 25 U/L (13-39) 02/02/22 23:23 ALT 20 U/L (7-52) 02/02/22 23:23 Alkaline Phosphatase 66 U/L (34-104) 02/02/22 23:23 Total Protein 7.5 gm/dl (6.0-8.3) 02/02/22 23:23 Albumin 4.4 gm/dl (3.4-5.0) 02/02/22 23: Globulin 3.1 gm/dl (2.5-4.0) 02/02/22 23:23 Albumin/Globulin Ratio 1.4 (0.9-2) 02/02/22 23:23 Urine Color Yellow 02/02/22 22:52 Urine Appearance Cloudy (Clear) A 02/02/22 22:52 Urine pH 5.0 (4.5-7.5) 02/02/22 22:52 Ur Specific [place] 1.017 (1.000-1.030) 02/02/22 22:52 Urine Protein 1+ (Negative) H 02/02/22 22:52 Urine Glucose (UA) Negative (Negative) 02/02/22 22:52 Urine Ketones 1+ (Negative) H 02/02/22 22:52 Urine Blood 3+ (Negative) H 02/02/22 22:52 Urine Nitrite Positive (Negative) A 02/02/22 22:52 Urine Bilirubin Negative (Negative) 02/02/22 22:52 Urine Urobilinogen Negative (Negative) 02/02/22 22:52 Ur Leukocyte Esterase 3+ (Negative) H 02/02/22 22:52 Urine WBC (Auto) >30 /hpf (0-5) H 02/02/22 22:52 Urine RBC (Auto) 10-30 /hpf (0-4) H 02/02/22 22:52 U Hyaline Cast (Auto) 1-5 /lpf (0-5) 02/02/22 22:52 U Epithel Cells (Auto) 0-5 /lpf (0-5) 02/02/22 22:52 Urine Bacteria (Auto) 2+ (Negative) H 02/02/22 22:52 SARS-CoV-2, RNA, NAAT NEGATIVE (NEGATIVE) 02/03/22 00:52 Impressions Abdomen/Pelvis CT 02/02/22 22:[address] WITHOUT CONTRAST CT DOSE: 1275.05 mGy.cm HISTORY: Left flank pain TECHNIQUE: Multiaxial CT images of the abdomen and pelvis were performed without contrast. A dose lowering technique was utilized adhering to the principles of ALARA. COMPARISON STUDY: Abdomen and pelvis CT 01/02/2012. FINDINGS: A few bibasilar linear densities consistent with subsegmental atelectasis. No pneumoperitoneum. No pneumatosis. Cortical plate and screws seen within the left posterior acetabulum. Bilateral L5 spondylolysis with associated grade 1 anterolisthesis. Healing left anterior sixth rib fractures. The duodenum extends to the midline but does not completely cross the midline. This remains unchanged. Small fat-containing bilateral inguinal hernias. The prostate gland is mildly enlarged. Mild bladder wall thickening may be due to underdistention or chronic outlet obstruction. Multiple colonic diverticula. No evidence for acute diverticulitis. Suboptimal evaluation for bowel pathology due to the lack of intravenous and oral contrast. However, there is no definite bowel wall thickening or obstruction. There is a 2.3 cm fat-containing nodule within the left side the abdomen anterior to the descending colon image 240. This demonstrates a thickened rind and favors a chronic epiploic appendage. No acute inflammatory change to suggest acute process. Subtle nodular contour to the liver consistent with mild cirrhosis. No hepatic or splenic masses identified. The adrenal glands, pancreas, and gallbladder are unremarkable. Multiple bilateral renal calculi. There is an obstructing 8 mm stone within the left ureteropelvic junction resulting in mild left hydronephrosis. Left perinephric edema is likely due to the structure and. Normal caliber abdominal aorta. IMPRESSION: 1. An 8 mm obstructing stone within the left ureteropelvic junction resulting in mild left hydronephrosis. 2. Bilateral nephrolithiasis. 3. Cirrhotic liver. 4. Colonic diverticulosis. No evidence for acute diverticulitis. 5. Additional findings as described above. ACT 112: Negative or not required by law. Electronically signed by: Rex Guerrero M.D. 02/03/2022 9:08 AM Retrograde Pyelogram 02/03/22 00:00 FL retrograde includes kub CLINICAL HISTORY: LT STENT COMPARISON STUDY: CT of the abdomen and pelvis from 02/02/2022 FLUOROSCOPY TIME: 12 seconds. FLUOROSCOPIC IMAGES: 3 FINDINGS: Retrograde urethrogram was performed with what appears to be a stone within the lower pole of the left kidney. Subsequently, a double-J ureteral stent was placed on the left. IMPRESSION: Placement of a double-J ureteral stent on the left. ACT 112: Negative or not required by law. Electronically signed by: Luis Herrera M.D. 02/03/2022 6:58 PM Chest X-Ray 02/03/22 09:34 XR chest 1V portable HISTORY: 71 years-old Male Pre-op preoperative exam. COMPARISON: Chest radiograph 05/21/2019 TECHNIQUE: Portable AP view of the chest FINDINGS: Cardiac silhouette is enlarged. No pneumothorax, large pleural effusion or airspace consolidation. Mild chronic interstitial coarsening. Degenerative changes of the shoulders and spine. IMPRESSION: No acute process. ACT 112: Negative or not required by law. The above report was generated using voice recognition software. It may contain grammatical, syntax or spelling errors. Electronically signed by: Jhonathan Watt M.D. 02/03/2022 9:46 AM Hospital Course (1) Calculus of proximal left ureter: (2) Acute UTI (urinary tract infection): (3) Diabetes: (4) HTN (hypertension): This is a 71-year-old male who has significant past medical history of T2DM, HTN, HLD, asthma, Miller comport hypertension, GERD, history of gastric ulcer, history of kidney stones who presented to ED secondary to left renal colic and urinary tract infection. Calculus of proximal left ureter Citrobacter UTI Left renal colic POD #2 status post cystoscopy, left retrograde pyelogram with left ureteral stent placement and Gamez catheter placement Gamez catheter removed 02/04/2022 Continue Flomax Urine culture growing Citrobacter -received IV ceftriaxone while admitted, will discharge on [id number] mg twice daily for an additional 7 days. Blood cultures no growth Urology will arrange follow-up as outpatient T2DM A1c 7.4 on 12/30/2021 Received NovoLog per protocol while hospitalized, resume Metformin at discharge HTN Losartan and HCTZ initially held due to borderline low BP, resumed on day of discharge HLD continue statin Total Time Total Time Spent Total Time Spent (In Minutes): 35 Discharge Plan Discharge Items Patient Disposition: Home - Self-Care Reason For Visit: Left flank pain Discharge Diagnosis: Kidney stone and UTI Activity: Resume your previous activity Non-emergency contact: Primary Care Provider and Urologist Call non-emergency contact if: you have any medication questions, your symptoms worsen, your pain is not controlled and your pain is concerning for you Follow-up/Referrals: Jordon Naqvi MD [Primary Care Provider] - (Date & Time 02/11/2022 11:20 AM Provider Jordon Naqvi MD Department General Internal Medicine [facility] ) Yariel Ross MD [Physician] - 02/17/22 9:20 am () Diet: Carb Consistent or DM2 and Heart Healthy Addtl Attending Provider Instructions: You came to the hospital for evaluation of left-sided back pain. You were found to have a kidney stone and UTI. You were evaluated by the urologist and had a stent placed on 02/03/2022. You will need follow-up for stent removal and stone treatment. You received IV antibiotics while admitted to the hospital, you will be discharged on cephalexin 500 mg twice daily for the next 7 days. Also take a probiotic while you are taking your antibiotic. You were also started on Flomax, this should help with any stent discomfort you may have. Continue to take all other medications as prescribed. Follow-up appointments have been made with your PCP and urologist, please keep this appointment as scheduled. It was a pleasure taking care of you. If you need to reach a [facility] Malissa Mosley, please call [phone] GAVIN Machado Addtl Installation [employer] Executive Provider Instructions: Please take all medications as prescribed and keep all follow-ups as scheduled. Please call the urology office at [phone] with any questions, concerns or need to reschedule appointments for any reason. We are happy to assist you. While you have a ureteral stent in place: Some discomfort is normal. Certain movements may trigger pain or a feeling that you need to urinate. You may also feel mild soreness or pressure before or during urination. Your urine may be slightly pink or red. This is due to bleeding caused by minor irritation from the stent. This may happen on and off while you have the stent, it is not harmful and is to be expected. Medication to help minimize discomfort or bladder spasms, or to prevent infection may be prescribed. Take this as directed. Drink plenty of fluids to help flush out your urinary tract. How long will you need a stent? An appointment should already be made for you for follow-up to discuss definitive stone treatment. When to call [facility] at [phone]: Your urine contains heavy blood clots or you are unable to urinate. You are constantly leaking urine. Fever of 101F or higher, chills, nausea, or vomiting. Your pain is not relieved with medication. The end of the stent comes out of your urethra. Pending Studies at Discharge: No Stand-Alone Forms: [facility] Medications and DC Order Prescriptions: New tamsulosin 0.4 mg Capsule 0.4 mg PO HS Qty: 14 RF: 0 Probiotic 3 billion cell capsule 3,000 mmu cells PO DAILY Qty: 7 RF: 0 cephalexin 500 mg capsule 500 mg PO BID Qty: 14 RF: 0 Continued multivitamin Tablet 1 tab PO QAM RF: 0 metformin 1,000 mg tablet 1,000 mg PO BID RF: 0 cinnamon bark [Cinnamon] 500 mg Capsule 500 mg PO QAM RF: 0 losartan 25 mg tablet 25 mg PO DAILY RF: 0 omeprazole 20 mg Tablet,Delayed Release (Dr/Ec) 20 mg PO BID RF: 0 cyanocobalamin (vitamin B-12) [Vitamin B-12] 1,000 mcg Tablet 1,000 mcg PO Q OTHER DAY RF: 0 elderberry fruit 200 mg Capsule 200 mg PO UD RF: 0 rosuvastatin 20 mg Tablet 20 mg PO DAILY RF: 0 hydrochlorothiazide 12.5 mg 12.5 mg PO DAILY RF: 0 Discharge Orders: Discharge Order (Routine); Ordered 02/05/22 Ordered By: Carmen Wallace/Other Patient Handouts: Managing Type 2 Diabetes, Special Foot Care for Diabetes Admission Data Admit Date/Time: 02/03/22 01:29 Attending Provider: Marcus Guy Admit Provider: Natan Teresa Primary Care Provider: Jordon Naqvi Other Providers: Natan Teresa ; Yariel oRss ; Glenda Francois Other Interventions: Discharge Summary Assessment (RN) Last Done: 02/05/22 10:51 Supervising Physician Co-Signing Physician Notes This 71-year-old gentleman with PMH of T2DM, HTN, HLD, asthma, MILLER, GERD, gastric ulcer, kidney stones who is being managed for left ureteral calculus status post left ureteral stent placement 02/03 by urology and is also being managed for acute UTI. Patient will need to follow-up with urology as an outpatient. Continue with antibiotic for 7 more days upon DC. Upon examination, on room air, negative for edema, heart lungs and abdominal examination WNL. DC today. I have seen and examined the patient and have discussed the case with the provider above. I agree with the examination/assessment and plan as stated.
== END 2022-02-05 11:32 | disposition home or self-care (01) | DRG 661 ==
LOC: ED 22:21 → 3E 02-03 01:29 → SUATTDRO 02-03 01:29 → 3E 02-03 02:22